=== PATIENT | male | born 1970 | race Caucasian/White ===

== ENCOUNTER 2018-06-29 09:40 | Inpatient (IN) | payer BC, SELFPAY ==
[2018-06-29] VITALS (47 sets, daily range): BP systolic 142–187; BP diastolic 89–114; PULSE 75–123; RESP 15–33; TEMP 37–39.4; O2SAT 91–98
[2018-06-29 10:01] LABS: Bilirubin Small (Negative); Blood Trace-lysed (Negative); Clarity Clear; Glucose Negative (Negative); Ketones 40 mg/dL (Negative); Leukocyte Esterase Negative (Negative); Nitrite Negative (Negative); Specific Gravity 1.025 (1.005-1.025)
[2018-06-29 10:09] LABS: Lactate 1.1 mmol/L (0.6-1.4)
[2018-06-29 10:10] LABS: Absolute Basophil Count 0.02 k/cumm (0.0-0.2); Absolute Lymphocyte Count 1.37 k/cumm (1.2-3.4); Absolute Monocyte Count 1.46 k/cumm (0.11-0.7); Basophils % 0.1; Eosinophils % 0.1; HCT 45.7 % (40.0-50.0); HGB 16.2 g/dL (13.5-17.5); Immature Grans % 0.6; Lymphocytes % 7.9; Mean Corp. HGB Concentration 35.4 g/dL (32.0-36.0); Mean Corpuscular Hemoglobin 30.2 pg (27.0-33.0); Mean Corpuscular Volume 85.1 fL (80-95); Mean Platelet Volume 9.7 fL (8.0-11.0); Monocytes % 8.4; Neutrophils % 82.9; Platelet Count 276 x1000/uL (130-400); RBC 5.37 m/cumm (4.50-6.00); RBC Distribution Width 12.1 % (11.8-14.1); White Blood Cell Count 17.35 k/cumm (4.4-10.8)
[2018-06-29 10:16] LABS: Absolute Eosinophil Count 0.02 k/cumm (0.0-0.7); Absolute Neutrophil Count 14.38 k/cumm (1.2-6.7)
[2018-06-29 10:19] LABS: Bacteria Moderate HPF (Negative); Epithelial Cells Negative HPF (Negative); Other Cells Few Renal (Negative); RBC Negative (0-2)
[2018-06-29 10:20] LABS: Casts 5-10 Hyaline LPF (Negative); Crystals Few Amorphous HPF (Negative); Mucus Moderate (Negative)
[2018-06-29 10:21] LABS: C & S Indicated? No
[2018-06-29 10:26] LABS: C-Reactive Protein 22.83 mg/dL (0.0-0.3)
--- NOTE | 2018-06-29 10:27 | W.ED.GENAD ---
Discharge Plan Disposition Patient Disposition: [facility] INPATIENT Condition: Improving Discharge Details Chief Complaint: Cellulitis Clinical Impression: Cellulitis, Headache, Sepsis Admit Date/Time: 06/29/18 14:32 Admit Provider: Beau Leonardo Attending Provider: Beau Leonardo Primary Care Provider: Margarita Boswell V ED Provider: Glynn Hernandez Discharge Data Discharge Date/Time-TO BE ENTERED AT DEPARTURE: 06/29/18 15:34 Medical Decision Making This is a 47-year-old male with past medical history of diabetes and hypertension who presents with 3 days of frontal pressure, severe headache, and cellulitis over his forehead extending to his ears bilaterally. On arrival here he is tachycardic, and febrile. He does complain of headache with as well as mild neck pain. No nuchal rigidity or neck stiffness. Signs and symptoms are notably concerning for septicemia, however differential also includes dural venous sinus thrombosis, as well as malignant sinusitis. Will start broad-spectrum antibiotics, he has a severe penicillin allergy and so we will start vancomycin and meropenem for the time being. We will start with head CT to evaluate for venous sinus thrombosis, and I feel that the patient would benefit from a lumbar puncture to rule out subsequent meningitis. With no focal neurologic deficits at this time, if the patient's CT scan is otherwise benign, I feel that lumbar puncture would be reasonable CT scan has returned, there is no evidence of acute bleed, tumor, or mass. No evidence of preseptal cellulitis. Laboratory workup demonstrates an elevated white count, notable left shift without bandemia. With the patient's continued severe headache, and other concerning symptoms including the notably elevated ESR and CRP, I do think that lumbar puncture is indicated. Lumbar puncture was performed, and unfortunately the initial tap was bloody, most likely secondary to finding a vessel. A second tap was performed with no evidence of gross bloodiness. Patient tolerated all this very well. Cerebrospinal fluid has returned, glucose is slightly elevated, total protein is also surprisingly elevated. CSF tube demonstrates 34 RBCs and 5 WBCs. Not clinically significant for severe bacterial meningitis, and it does not appear to represent a severe intracranial bleed with the clinical component of the initial bloody tap, especially in conjunction with a CT scan showing no evidence of acute bloody process. Patient was given Tylenol and rehydrated with normal saline, is actually feeling much better now after this intervention and antibiotics. With the patient's evidence of sepsis with his tachycardia, fever, notable scalp cellulitis, I do feel that admission, continued IV antibiotics, is certainly reasonable and indicated. I contacted our hospitalist Dr Leonardo, he agrees with the assessment and plan. I have extensively reviewed the treatment plan with the patient. I have addressed all patient concerns at this time. I have also discussed the plan with the admitting physician and they agree with the current assessment and plan and have agreed to assume responsibility for the patient. All parties demonstrate verbal understanding and agreement with our assessment and plan at this time. EKG 10: 09 Rate 111, intervals normal, sinus tachycardia, no significant ST elevations or depressions, inverted T wave present in V1. No Q waves Procedure: Lumbar Puncture Indication: Altered Mental Status/Headache A time-out was completed verifying correct patient, procedure, site, positioning, and special equipment if applicable. The patient was placed in the LEFT lateral decubitus position in a semi- position with help from the nursing staff. The area was cleansed and draped in usual sterile fashion. 1% lidocaine was used anesthetize the surrounding skin area. A 20-gauge 3.5-inch spinal needle was placed in the L4-L5 interspace. Notable bloody tap was encountered, 2 tubes were filled with relatively clear fluid with minimal red tinged. Because of the concern for result obfuscation from the blood a second tap was performed with a 25-gauge 3.5 spinal needle was then placed in the L4-L5 interspace. No bloody tap. Patient tolerated procedure well. Total of 4 mL's of cerebrospinal fluid was elected. Tubes 1 and 2 were from the initial tap, and tubes 3 and 4 were from the second tap. Estimated Blood Loss: 1ml The patient tolerated the procedure well and there were no complications. CRANIAL CT: The study was carried out with an intravenous injection of 100 cc of Omnipaque 350. There is no evidence of an intra/extra-axial hemorrhage, mass or fluid collection. The velazquez-white matter differentiation is well maintained. The ventricles are normal. No vascular abnormality is identified. There is no evidence of a skull fracture. Mild mucoperiosteal thickening is noted in the left maxillary antrum and in the ethmoid and left frontal sinus. There is no evidence of a mastoid effusion. SUMMARY: No acute intracranial abnormality is seen. There are mild inflammatory changes involving the left maxillary, ethmoid and left frontal sinus. FACIAL BONE CT: HPI General Date/Time Provider Initiated Documentation: 06/29/18 10:04. HPI Narrative: This is a 47-year-old male with past medical history of hypertension diabetes who presents today for evaluation of facial swelling, and headache. Patient states that for the last 3 days he has had frontal cellulitis, notable swelling and pressure over his frontal maxillary sinuses. He did have an upper respiratory infection about a week and a half prior, but he felt like this is resolving. He describes the pain is severe. When it started 2-3 days ago he was driving back from [place] was noticing visual hallucinations, the colors of the cars in front of him with change, which she felt was very atypical. Today he was noted to have a fever and elevated heart rate when he went to his primary care provider's office for assessment. Patient denies any history of trauma. He does admit to headache as well as some mild neck pain. He denies any auditory changes. He denies any vomiting, diarrhea, numbness, tingling, focal weakness, or other abnormalities. He denies any other visual hallucinations aside for what was mentioned. He is not on any blood thinners. No other complaints at this time. He denies any IV or illicit drug use, or pertinent family history or recent surgical history. Related Data Home Medications Medication Instructions Recorded Confirmed amlodipine 2.5 - 5 mg PO DAILY 06/29/18 06/29/18 chlorthalidone 25 mg PO DAILY 06/29/18 06/29/18 cyanocobalamin (vitamin B-12) 1,000 mcg PO DAILY 06/29/18 06/29/18 [Vitamin B-12] glipizide 20 mg PO DAILY 06/29/18 06/29/18 losartan 100 mg PO DAILY 06/29/18 06/29/18 metformin [Glucophage XR] 750 mg PO DAILY 06/29/18 06/29/18 Allergies Allergy/AdvReac Type Severity Reaction Status Date / Time Penicillins Allergy Unverified 06/29/18 10:18 General Stated Complaint: Cellulitis LAURIE: 3 Review of Systems Review of Systems All systems reviewed & are unremarkable except as noted in HPI and below [facility] Medical History Hypertension (Chronic) Diabetes mellitus (Chronic) Social History Smoking/Tobacco Use Status: Never Alcohol Intake: current Alcohol Intake frequency: holidays/special occasions only Details: rare etoh Drug use: Never current occupation: [employer], 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 3.ENT: Atraumatic external nose and ears. Moist MM. Neck: Symmetric, trachea midline, No thyromegaly. Notable swelling over the forehead, extending down towards the ears bilaterally. It is warm, red, and mildly indurated. Notable tenderness over the frontal maxillary sinuses. No proptosis. No significant pain with movement of the eyes. No evidence of otitis media or externa. Patient does demonstrate subjective tenderness in his neck, however no neck stiffness or nuchal rigidity. Negative Kernig's and Brudzinski's. 4.CVS: +S1/S2, No murmurs or gallops. Peripheral pulses 2+ and equal in all extremities. Brisk capillary refill in all extremities. 5.RESP: Unlabored respiratory effort. Clear to auscultation bilaterally. No wheezes rales or rhonchi 6.GI: Soft, Nontender/Nondistended, No hepatosplenomegaly. No guarding or rebound. 7.MSK: Normocephalic/Atraumatic, Extremities w/o deformity or ttp No cyanosis or clubbing, Normal movement of all extremities 8.Skin: Warm, Dry. No rashes or lesions. 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 Sensation grossly intact, no focal neurologic deficits. All 6 cardinal planes of vision are fully intact. No evidence of rotatory or vertical nystagmus. The patient demonstrated a normal [id number], good dexterity. There was no evidence of dysdiadochokinesia. Patient was able to ambulate without difficulty. There was no wide-based gait. Romberg, and [id number]-hv-[id number] are both normal on testing. Sensation was intact bilaterally as well as muscle strength bilaterally for all extremities. Patient was able to verbalize butter cup with no slurring, or miss pronunciation. 10.Psych: (AAO) x3. Appropriate mood and affect Course Vital Signs Temperature 39.3 C H 06/29/18 09:48 Pulse 123 H 06/29/18 09:48 Respiratory Rate 16 06/29/18 09:48 Blood Pressure 187/114 H 06/29/18 09:48 Pulse Oximetry 98 06/29/18 09:48 Temperature 39.3 C H 06/29/18 09:48 Temperature Source Tympanic 06/29/18 09:48 Pulse 123 H 06/29/18 09:48 Respiratory Rate 16 06/29/18 09:48 Respiratory Effort Non-Labored 06/29/18 09:55 Blood Pressure 187/114 H 06/29/18 09:48 Blood Pressure Position Sitting 06/29/18 09:48 Pulse Oximetry 98 06/29/18 09:48 Oxygen Delivery Method Room Air 06/29/18 09:48 Oxygen Flow Rate 0 06/29/18 09:48 Pain Level 10 06/29/18 09:48 Lab/Test Results Lab/Test Results: 06/29/18 09:57 Blood Blood Culture - Pending 06/29/18 10:05 Blood Blood Culture - Pending Laboratory Tests Range/Units 06/29/18 06/29/18 06/29/18 09:53 09:57 09:57 WBC (4.4-10.8) k/cumm 17.35 H RBC (4.50-6.00) m/cumm 5.37 Hgb (13.5-17.5) g/dL 16.2 Hct (40.0-50.0) % 45.7 MCV (80-95) fL 85.1 MCH (27.0-33.0) pg 30.2 MCHC (32.0-36.0) g/dL 35.4 RDW (11.8-14.1) % 12.1 Plt Count (130-400) x1000/uL 276 MPV (8.0-11.0) fL 9.7 Immature Gran % 0.6 Neutrophils % 82.9 Lymphocytes % 7.9 Monocytes % 8.4 Eosinophils % 0.1 Basophils % 0.1 Absolute Neutrophils (1.2-6.7) k/cumm 14.38 H Absolute Lymphocytes (1.2-3.4) k/cumm 1.37 Absolute Monocytes (0.11-0.7) k/cumm 1.46 H Absolute Eosinophils (0.0-0.7) k/cumm 0.02 Absolute Basophils (0.0-0.2) k/cumm 0.02 Lactate (0.6-1.4) mmol/L 1.1 C-Reactive Protein (0.0-0.3) mg/dL Urine Color (Yellow) Lala Urine Clarity Clear Urine pH (5-8) 6.0 Ur Specific Tolstoy (1.005-1.025) 1.025 Urine Protein (Negative) mg/dL >=300 H Urine Ketones (Negative) mg/dL 40 H Urine Blood (Negative) Trace-lysed H Urine Nitrite (Negative) Negative Urine Bilirubin (Negative) Small H Urine Urobilinogen (Up TO 0.2) EU/dL 2.0 H Ur Leukocyte Esterase (Negative) Negative Urine RBC (0-2) Negative Urine WBC (0-5) HPF 3-5 Ur Epithelial Cells (Negative) HPF Negative Urine Crystals (Negative) HPF Few amorphous Urine Bacteria (Negative) HPF Moderate Urine Casts (Negative) LPF 5-10 hyaline Urine Mucus (Negative) Moderate Urine Other (Negative) Few renal Ur Culture Indicated? No Urine Glucose (Negative) mg/dL Negative Range/Units 06/29/18 09:57 WBC (4.4-10.8) k/cumm RBC (4.50-6.00) m/cumm Hgb (13.5-17.5) g/dL Hct (40.0-50.0) % MCV (80-95) fL MCH (27.0-33.0) pg MCHC (32.0-36.0) g/dL RDW (11.8-14.1) % Plt Count (130-400) x1000/uL MPV (8.0-11.0) fL Immature Gran % Neutrophils % Lymphocytes % Monocytes % Eosinophils % Basophils % Absolute Neutrophils (1.2-6.7) k/cumm Absolute Lymphocytes (1.2-3.4) k/cumm Absolute Monocytes (0.11-0.7) k/cumm Absolute Eosinophils (0.0-0.7) k/cumm Absolute Basophils (0.0-0.2) k/cumm Lactate (0.6-1.4) mmol/L C-Reactive Protein (0.0-0.3) mg/dL 22.83 H Urine Color (Yellow) Urine Clarity Urine pH (5-8) Ur Specific Tolstoy (1.005-1.025) Urine Protein (Negative) mg/dL Urine Ketones (Negative) mg/dL Urine Blood (Negative) Urine Nitrite (Negative) Urine Bilirubin (Negative) Urine Urobilinogen (Up TO 0.2) EU/dL Ur Leukocyte Esterase (Negative) Urine RBC (0-2) Urine WBC (0-5) HPF Ur Epithelial Cells (Negative) HPF Urine Crystals (Negative) HPF Urine Bacteria (Negative) HPF Urine Casts (Negative) LPF Urine Mucus (Negative) Urine Other (Negative) Ur Culture Indicated? Urine Glucose (Negative) mg/dL
[2018-06-29 10:32] LABS: ALT 69 U/L (12-78); AST 35 U/L (15-37); Albumin 3.4 g/dL (3.4-5.0); Alkaline Phosphatase 65 U/L (46-116); Anion Gap 12.7 mmol/L (3-11); BUN 12 mg/dL (7-18); Bilirubin, Total 1.5 mg/dL (0.2-1.0); CO2 29.3 mmol/L (21.0-32.0); CREATININE 1.02 mg/dL (0.70-1.30); Calcium 9.5 mg/dL (8.5-10.1); Chloride 87 mmol/L (98-107); Glucose 170 mg/dL (70-100); Sodium 129 mmol/L (136-145); Total Protein 9.3 g/dL (6.4-8.2); Troponin I < 0.02 ng/mL (0.00-0.06)
--- NOTE | 2018-06-29 10:33 | ED.GENADUL_ITS ---
Discharge Plan Disposition Patient Disposition: [facility] INPATIENT Condition: Improving Discharge Details Chief Complaint: Cellulitis Clinical Impression: Cellulitis, Headache, Sepsis Admit Date/Time: 06/29/18 14:32 Admit Provider: Beau Leonardo Attending Provider: Beau Leonardo Primary Care Provider: Margarita Boswell V ED Provider: Glynn Hernandez Discharge Data Discharge Date/Time-TO BE ENTERED AT DEPARTURE: 06/29/18 15:34 Medical Decision Making This is a 47-year-old male with past medical history of diabetes and hypertension who presents with 3 days of frontal pressure, severe headache, and cellulitis over his forehead extending to his ears bilaterally. On arrival here he is tachycardic, and febrile. He does complain of headache with as well as mild neck pain. No nuchal rigidity or neck stiffness. Signs and symptoms are notably concerning for septicemia, however differential also includes dural venous sinus thrombosis, as well as malignant sinusitis. Will start broad- spectrum antibiotics, he has a severe penicillin allergy and so we will start vancomycin and meropenem for the time being. We will start with head CT to evaluate for venous sinus thrombosis, and I feel that the patient would benefit from a lumbar puncture to rule out subsequent meningitis. With no focal neurologic deficits at this time, if the patient's CT scan is otherwise benign, I feel that lumbar puncture would be reasonable CT scan has returned, there is no evidence of acute bleed, tumor, or mass. No evidence of preseptal cellulitis. Laboratory workup demonstrates an elevated white count, notable left shift without bandemia. With the patient's continued severe headache, and other concerning symptoms including the notably elevated ESR and CRP, I do think that lumbar puncture is indicated. Lumbar puncture was performed, and unfortunately the initial tap was bloody, most likely secondary to finding a vessel. A second tap was performed with no evidence of gross bloodiness. Patient tolerated all this very well. Cerebrospinal fluid has returned, glucose is slightly elevated, total protein is also surprisingly elevated. CSF tube demonstrates 34 RBCs and 5 WBCs. Not clinically significant for severe bacterial meningitis, and it does not appear to represent a severe intracranial bleed with the clinical component of the initial bloody tap, especially in conjunction with a CT scan showing no evidence of acute bloody process. Patient was given Tylenol and rehydrated with normal saline, is actually feeling much better now after this intervention and antibiotics. With the patient's evidence of sepsis with his tachycardia, fever, notable scalp cellulitis, I do feel that admission, continued IV antibiotics, is certainly reasonable and indicated. I contacted our hospitalist Dr Leonardo, he agrees with the assessment and plan. I have extensively reviewed the treatment plan with the patient. I have addressed all patient concerns at this time. I have also discussed the plan with the admitting physician and they agree with the current assessment and plan and have agreed to assume responsibility for the patient. All parties demonstrate verbal understanding and agreement with our assessment and plan at this time. EKG 10: 09 Rate 111, intervals normal, sinus tachycardia, no significant ST elevations or depressions, inverted T wave present in V1. No Q waves Procedure: Lumbar Puncture Indication: Altered Mental Status/Headache A time-out was completed verifying correct patient, procedure, site, positioning, and special equipment if applicable. The patient was placed in the LEFT lateral decubitus position in a semi- position with help from the nursing staff. The area was cleansed and draped in usual sterile fashion. 1% lidocaine was used anesthetize the surrounding skin area. A 20-gauge 3.5-inch spinal needle was placed in the L4-L5 interspace. Notable bloody tap was encountered, 2 tubes were filled with relatively clear fluid with minimal red tinged. Because of the concern for result obfuscation from the blood a second tap was performed with a 25-gauge 3.5 spinal needle was then placed in the L4- L5 interspace. No bloody tap. Patient tolerated procedure well. Total of 4 mL's of cerebrospinal fluid was elected. Tubes 1 and 2 were from the initial tap, and tubes 3 and 4 were from the second tap. Estimated Blood Loss: 1ml The patient tolerated the procedure well and there were no complications. CRANIAL CT: The study was carried out with an intravenous injection of 100 cc of Omnipaque 350. There is no evidence of an intra/extra-axial hemorrhage, mass or fluid collection. The velazquez-white matter differentiation is well maintained. The ventricles are normal. No vascular abnormality is identified. There is no evidence of a skull fracture. Mild mucoperiosteal thickening is noted in the left maxillary antrum and in the ethmoid and left frontal sinus. There is no evidence of a mastoid effusion. SUMMARY: No acute intracranial abnormality is seen. There are mild inflammatory changes involving the left maxillary, ethmoid and left frontal sinus. FACIAL BONE CT: HPI General Date/Time Provider Initiated Documentation: 06/29/18 10:04 . HPI Narrative: This is a 47-year-old male with past medical history of hypertension diabetes who presents today for evaluation of facial swelling, and headache. Patient states that for the last 3 days he has had frontal cellulitis, notable swelling and pressure over his frontal maxillary sinuses. He did have an upper respiratory infection about a week and a half prior, but he felt like this is resolving. He describes the pain is severe. When it started 2-3 days ago he was driving back from [place] was noticing visual hallucinations, the colors of the cars in front of him with change, which she felt was very atypical. Today he was noted to have a fever and elevated heart rate when he went to his primary care provider's office for assessment. Patient denies any history of trauma. He does admit to headache as well as some mild neck pain. He denies any karsten tory changes. He denies any vomiting, diarrhea, numbness, tingling, focal weakness, or other abnormalities. He denies any other visual hallucinations aside for what was mentioned. He is not on any blood thinners. No other complaints at this time. He denies any IV or illicit drug use, or pertinent family history or recent surgical history. Related Data Home Medications Medication Instructions Recorded Confirmed amlodipine 2.5 - 5 mg PO DAILY 06/29/18 06/29/18 chlorthalidone 25 mg PO DAILY 06/29/18 06/29/18 cyanocobalamin (vitamin B-12) 1,000 mcg PO DAILY 06/29/18 06/29/18 [Vitamin B-12] glipizide 20 mg PO DAILY 06/29/18 06/29/18 losartan 100 mg PO DAILY 06/29/18 06/29/18 metformin [Glucophage XR] 750 mg PO DAILY 06/29/18 06/29/18 Allergies Allergy/AdvReac Type Severity Reaction Status Date / Time Penicillins Allergy Unverified 06/29/18 10:18 General Stated Complaint: Cellulitis LAURIE: 3 Review of Systems Review of Systems All systems reviewed & are unremarkable except as noted in HPI and below [facility] Medical History Hypertension (Chronic) Diabetes mellitus (Chronic) Social History Smoking/Tobacco Use Status: Never Alcohol Intake: current Alcohol Intake frequency: holidays/special occasions only Details: rare etoh Drug use: Never 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 3.ENT: Atraumatic external nose and ears. Moist MM. Neck: Symmetric, trachea m idline, No thyromegaly. Notable swelling over the forehead, extending down towards the ears bilaterally. It is warm, red, and mildly indurated. Notable tenderness over the frontal maxillary sinuses. No proptosis. No significant pain with movement of the eyes. No evidence of otitis media or externa. Patient does demonstrate subjective tenderness in his neck, however no neck stiffness or nuchal rigidity. Negative Kernig's and Brudzinski's. 4.CVS: +S1/S2, No murmurs or gallops. Peripheral pulses 2+ and equal in all extremities. Brisk capillary refill in all extremities. 5.RESP: Unlabored respiratory effort. Clear to auscultation bilaterally. No wheezes rales or rhonchi 6.GI: Soft, Nontender/Nondistended, No hepatosplenomegaly. No guarding or rebound. 7.MSK: Normocephalic/Atraumatic, Extremities w/o deformity or ttp No cyanosis or clubbing, Normal movement of all extremities 8.Skin: Warm, Dry. No rashes or lesions. 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 Sensation grossly intact, no focal neurologic deficits. All 6 cardinal planes of vision are fully intact. No evidence of rotatory or vertical nystagmus. The patient demonstrated a normal [id number], good dexterity. There was no evidence of dysdiadochokinesia. Patient was able to ambulate without difficulty. There was no wide-based gait. Romberg, and [id number] are both normal on testing. Sensation was intact bilaterally as well as muscle strength bilaterally for all extremities. Patient was able to verbalize butter cup with no slurring, or miss pronunciation. 10.Psych: (AAO) x3. Appropriate mood and affect Course Vital Signs Temperature 39.3 C H 06/29/18 09:48 Pulse 123 H 06/29/18 09:48 Respiratory Rate 16 06/29/18 09:48 Blood Pressure 187/114 H 06/29/18 09:48 Pulse Oximetry 98 06/29/18 09:48 Temperature 39.3 C H 06/29/18 09:48 Temperature Source Tympanic 06/29/18 09:48 Pulse 123 H 06/29/18 09:48 Respiratory Rate 16 06/29/18 09:48 Respiratory Effort Non-Labored 06/29/18 09:55 Blood Pressure 187/114 H 06/29/18 09:48 Blood Pressure Position Sitting 06/29/18 09:48 Pulse Oximetry 98 06/29/18 09:48 Oxygen Delivery Method Room Air 06/29/18 09:48 Oxygen Flow Rate 0 06/29/18 09:48 Pain Level 10 06/29/18 09:48 Lab/Test Results Lab/Test Results: 06/29/18 09:57 Blood Blood Culture - Pending 06/29/18 10:05 Blood Blood Culture - Pending Laboratory Tests Range/Units 06/29/18 06/29/18 06/29/18 09:53 09:57 09:57 WBC (4.4-10.8) k/cumm 17.35 H RBC (4.50-6.00) m/cumm 5.37 Hgb (13.5-17.5) g/dL 16.2 Hct (40.0-50.0) % 45.7 MCV (80-95) fL 85.1 MCH (27.0-33.0) pg 30.2 MCHC (32.0-36.0) g/dL 35.4 RDW (11.8-14.1) % 12.1 Plt Count (130-400) x1000/uL 276 MPV (8.0-11.0) fL 9.7 Immature Gran % 0.6 Neutrophils % 82.9 Lymphocytes % 7.9 Monocytes % 8.4 Eosinophils % 0.1 Basophils % 0.1 Absolute Neutrophils (1.2-6.7) k/cumm 14.38 H Absolute Lymphocytes (1.2-3.4) k/cumm 1.37 Absolute Monocytes (0.11-0.7) k/cumm 1.46 H Absolute Eosinophils (0.0-0.7) k/cumm 0.02 Absolute Basophils (0.0-0.2) k/cumm 0.02 Lactate (0.6-1.4) mmol/L 1.1 C-Reactive Protein (0.0-0.3) mg/dL Urine Color (Yellow) Lala Urine Clarity Clear Urine pH (5-8) 6.0 Ur Specific [place] (1.005-1.025) 1.025 Urine Protein (Negative) mg/dL >=300 H Urine Ketones (Negative) mg/dL 40 H Urine Blood (Negative) Trace-lysed H Urine Nitrite (Negative) Negative Urine Bilirubin (Negative) Small H Urine Urobilinogen (Up TO 0.2) EU/dL 2.0 H Ur Leukocyte Esterase (Negative) Negative Urine RBC (0-2) Negative Urine WBC (0-5) HPF 3-5 Ur Epithelial Cells (Negative) HPF Negative Urine Crystals (Negative) HPF Few amorphous Urine Bacteria (Negative) HPF Moderate Urine Casts (Negative) LPF 5-10 hyaline Urine Mucus (Negative) Moderate Urine Other (Negative) Few renal Ur Culture Indicated? No Urine Glucose (Negative) mg/dL Negative Range/Units 06/29/18 09:57 WBC (4.4-10.8) k/cumm RBC (4.50-6.00) m/cumm Hgb (13.5-17.5) g/dL Hct (40.0-50.0) % MCV (80-95) fL MCH (27.0-33.0) pg MCHC (32.0-36.0) g/dL RDW (11.8-14.1) % Plt Count (130-400) x1000/uL MPV (8.0-11.0) fL Immature Gran % Neutrophils % Lymphocytes % Monocytes % Eosinophils % Basophils % Absolute Neutrophils (1.2-6.7) k/cumm Absolute Lymphocytes (1.2-3.4) k/cumm Absolute Monocytes (0.11-0.7) k/cumm Absolute Eosinophils (0.0-0.7) k/cumm Absolute Basophils (0.0-0.2) k/cumm Lactate (0.6-1.4) mmol/L C-Reactive Protein (0.0-0.3) mg/dL 22.83 H Urine Color (Yellow) Urine Clarity Urine pH (5-8) Ur Specific [place] (1.005-1.025) Urine Protein (Negative) mg/dL Urine Ketones (Negative) mg/dL Urine Blood (Negative) Urine Nitrite (Negative) Urine Bilirubin (Negative) Urine Urobilinogen (Up TO 0.2) EU/dL Ur Leukocyte Esterase (Negative) Urine RBC (0-2) Urine WBC (0-5) HPF Ur Epithelial Cells (Negative) HPF Urine Crystals (Negative) HPF Urine Bacteria (Negative) HPF Urine Casts (Negative) LPF Urine Mucus (Negative) Urine Other (Negative) Ur Culture Indicated? Urine Glucose (Negative) mg/dL
[2018-06-29 11:11] LABS: ESR 92 MM/HR (0-15)
--- NOTE | 2018-06-29 11:25 | DI.CT_ITS ---
SYMPTOMS/DIAGNOSIS: FACIAL CELLULITIS, FRONTAL PRESSURE, ? DURAL VENOUS SINUS THROMBOSIS CRANIAL CT: The study was carried out with an intravenous injection of 100 cc of Omnipaque 350. There is no evidence of an intra/extra-axial hemorrhage, mass or fluid collection. The velazquez-white matter differentiation is well maintained. The ventricles are normal. No vascular abnormality is identified. There is no evidence of a skull fracture. Mild mucoperiosteal thickening is noted in the left maxillary antrum and in the ethmoid and left frontal sinus. There is no evidence of a mastoid effusion. SUMMARY: No acute intracranial abnormality is seen. There are mild inflammatory changes involving the left maxillary, ethmoid and left frontal sinus. FACIAL BONE CT: The study was carried out according to the usual protocol with intravenous administration of 100 cc of Omnipaque 350. No bony abnormality is seen. There is mucoperiosteal thickening involving the floor of the left maxillary antrum, and left ethmoid and left frontal air cell. The intraorbital contents appear intact. Increased density is noted in the subcutaneous soft tissues over the face consistent with the clinical finding of facial cellulitis. There is no discrete soft tissue mass or fluid collection.
[2018-06-29] MEDS: Omnipaque 350 MG/ML 100 ML BTL IJ (11:35)
[2018-06-29] MEDS: Normal Saline 1,000 ML 1000 ML IV (12:00)
[2018-06-29] MEDS: POTASSIUM CHLORIDE 20 MEQ/100 ML BAG 50 MEQ IVPB (12:00)
[2018-06-29] MEDS: Potassium Chloride 20 MEQ TABCR 40 MEQ PO (12:10)
[2018-06-29] MEDS: Acetaminophen 500 MG TAB (12:13)
[2018-06-29] MEDS: MORPHine 10 MG/ML VIAL 4 MG IVP (13:03)
[2018-06-29 13:18] LABS: Glucose (CSF) 91 mg/dL (40-70); Total Protein (CSF) 94 mg/dL (15-45)
[2018-06-29 13:57] LABS: Clarity Clear; RBC 34 /mm3 (0-5); Tube # 2; WBC 5 /mm3 (0-5); Xanthochromia Absent
[2018-06-29 13:59] LABS: RBC Tube#1 CSF 167 /mm3 (0-5)
--- NOTE | 2018-06-29 16:17 | W.PM.HP.N ---
Date of service: 06/29/18 Time of Service: 16:17 Assessment and Plan (1) Facial cellulitis: Current visit: Yes Status: Acute Possibly related to recent URI with sinus congestion, also has healing wounds that could possibly serve as portals for infection. He has leukocytosis to 17.35, he was febrile on presentation, lactate normal. LP findings discussed with Neurology by Dr. Leonardo, LP shows clear fluid, 5 WBCs, elevated protein- likely related to inflammation and DM, glucose elevated on LP related to DM, neurology not concerned about these findings. Facial and head CT with findings consistent with facial cellulitis, no soft tissue mass or fluid collection. No drainage to culture. Blood cultures pending. Continue IV antibiotics started in the ED including Vanco and Meropenem. Continue IV fluids overnight. APAP for fevers and headache. Repeat CBC in the morning. (2) Diabetes mellitus: Current visit: Yes Status: Chronic Hold metformin. Continue glipizide and follow blood glucose, aspart per sliding scale. Adjust insulin as needed. Hgb A1c in the morning. Carbohydrate counting diet. (3) Dehydration: Current visit: Yes Status: Acute Appears dry by labs, with hyponatremia and low choloride. IV NS overnight. Reassess chemistries in the morning. (4) Hypertension: Current visit: Yes Status: Chronic Hold losartan and chlorthalidone. Follow blood pressures. Continue home dose of amlodipine. Resume home antihypertensive regimen as indicated. (5) Hypokalemia: Current visit: Yes Status: Acute Received potassium supplementation. Continue to follow. (6) DVT prophylaxis: Current visit: Yes Status: Acute Subcutaneous lovenox. (7) Discharge planning issues: Current visit: Yes Status: Acute He is a FULL CODE. This case was discussed with Dr. Leonardo who is in agreement. History of Present Illness Chief Complaint: fever, headache, facial cellulitis Narrative: Ari Bernal is a very pleasant 47-year-old male with a past medical history significant for hypertension diabetes who presented to his primary care office today and was directed to the emergency department. He reports a recent upper respiratory infection with a cough, congestion and sinus pressure that was resolving about a week ago. As the upper respiratory infection was improving, he began to notice that his neck appeared red and swollen and he felt feverish. Over the following days, the redness spread up over his ears and over his forehead. At the time of presentation to the emergency department today, he was febrile to 39.4, tachycardic, hypertensive, and reported a headache as well as mild neck pain that was improving. His labs were notable for hyponatremia with a sodium of 129, potassium low at 3.0, chloride low at 87, elevated anion gap at 12.7. His CRP was 22.83, sed rate was 92, he had leukocytosis with white blood cell count of 17.35. His lactate was normal at 1.1. He had a CT head and facial bones which showed mild inflammatory changes involving the left maxillary, ethmoid and left frontal sinus, findings consistent with facial cellulitis, no discrete soft tissue mass or fluid collection. His fever improved with tylenol. He was started on Vanco and Meropenem for facial cellulitis and admitted to the med/surg floor for IV antibiotics. By the time he was admitted to the med/surg floor, he reports feeling markedly better, he continues to have head pressure, although it improved with tylenol. He denies eye pain, vision changes including diplopia and blurred vision. He recalls going to a salon for a hair cut and has two healing wounds that may have been from that encounter, one lesion posterior to each ear. He also reports a healing wound on his left chest that has surrounding erythema. Over the last week he has been going through his father's belongings in a barn and is concerned that he may have had an exposure to something at that time. He no longer has sinus pain or congestion, his cough has resolved, no wheezing, chest pain/pressure, palpitations. He was nauseated and had a poor appetite prior to coming into the hospital, however, his nausea has resolved and he feels hungry now. He denies dysuria, hematuria, and diarrhea. 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 [employer] Do you feel safe at home: Yes Do you feel safe in your relationship?: Yes Meds Home Medications Medication Instructions Recorded Confirmed Type amlodipine 2.5 - 5 mg PO DAILY 06/29/18 06/29/18 History chlorthalidone 25 mg PO DAILY 06/29/18 06/29/18 History cyanocobalamin (vitamin B-12) 1,000 mcg PO DAILY 06/29/18 06/29/18 History [Vitamin B-12] glipizide 20 mg PO DAILY 06/29/18 06/29/18 History losartan 100 mg PO DAILY 06/29/18 06/29/18 History metformin [Glucophage XR] 750 mg PO DAILY 06/29/18 06/29/18 History Allergies Allergy/AdvReac Type Severity Reaction Status Date / Time Penicillins Allergy Unverified 06/29/18 10:18 Exam Narrative Exam Narrative: General: sitting up in bed, awake and alert, in no acute distress. HEENT: pupils equal and round and reactive to light, EOMI, no pain with eye movement. mucous membranes moist, oropharynx skin: blanching erythema and marked edema of forehead, along sides of face (sparing nose, mouth and chin), including bilateral ears, around neck and down into chest. Skin lesion to left chest, healing wound, no drainage, surrounded by erythema. Healing wound noted posterior to each ear, no active drainage. Neck: supple, no lymphadenopathy. Cardiovascular: heart has regular rate and rhythm, no murmur. Respiratory: respirations even and unlabored, lung sound clear to auscultation throughout. Extremities: no clubbing, cyanosis or edema. Results Labs : 06/29/18 09:57 06/29/18 09:57 Laboratory Results - last 24 hr 06/29/18 06/29/18 06/29/18 09:53 09:57 09:57 WBC RBC Hgb Hct MCV MCH MCHC RDW Plt Count MPV Immature Gran % Neutrophils % Lymphocytes % Monocytes % Eosinophils % Basophils % Absolute Neutrophils Absolute Lymphocytes Absolute Monocytes Absolute Eosinophils Absolute Basophils Xanthochromia ESR Sodium 129 L Potassium 3.0 L Chloride 87 L Carbon Dioxide 29.3 Anion Gap 12.7 H BUN 12 Creatinine 1.02 Estimated GFR/1.73 m2 >= 60.00 Glucose 170 H Lactate 1.1 Calcium 9.5 Magnesium 2.0 Total Bilirubin 1.5 H AST 35 ALT 69 Alkaline Phosphatase 65 Troponin I < 0.02 C-Reactive Protein Total Protein 9.3 H Albumin 3.4 Urine Color Lala Urine Clarity Clear Urine pH 6.0 Ur Specific [place] 1.025 Urine Protein >=300 H Urine Ketones 40 H Urine Blood Trace-lysed H Urine Nitrite Negative Urine Bilirubin Small H Urine Urobilinogen 2.0 H Ur Leukocyte Esterase Negative Urine RBC Negative Urine WBC 3-5 Ur Epithelial Cells Negative Urine Crystals Few amorphous Urine Bacteria Moderate Urine Casts 5-10 hyaline Urine Mucus Moderate Urine Other Few renal Ur Culture Indicated? No Urine Glucose Negative CSF Tube Number CSF Color CSF Clarity CSF WBC CSF RBC CSF RBC (1) CSF Diff Comment CSF Glucose CSF Total Protein 06/29/18 06/29/18 06/29/18 09:57 09:57 09:57 WBC 17.35 H RBC 5.37 Hgb 16.2 Hct 45.7 MCV 85.1 MCH 30.2 MCHC 35.4 RDW 12.1 Plt Count 276 MPV 9.7 Immature Gran % 0.6 Neutrophils % 82.9 Lymphocytes % 7.9 Monocytes % 8.4 Eosinophils % 0.1 Basophils % 0.1 Absolute Neutrophils 14.38 H Absolute Lymphocytes 1.37 Absolute Monocytes 1.46 H Absolute Eosinophils 0.02 Absolute Basophils 0.02 Xanthochromia ESR 92 H Sodium Potassium Chloride Carbon Dioxide Anion Gap BUN Creatinine Estimated GFR/1.73 m2 Glucose Lactate Calcium Magnesium Total Bilirubin AST ALT Alkaline Phosphatase Troponin I C-Reactive Protein 22.83 H Total Protein Albumin Urine Color Urine Clarity Urine pH Ur Specific [place] Urine Protein Urine Ketones Urine Blood Urine Nitrite Urine Bilirubin Urine Urobilinogen Ur Leukocyte Esterase Urine RBC Urine WBC Ur Epithelial Cells Urine Crystals Urine Bacteria Urine Casts Urine Mucus Urine Other Ur Culture Indicated? Urine Glucose CSF Tube Number CSF Color CSF Clarity CSF WBC CSF RBC CSF RBC (1) CSF Diff Comment CSF Glucose CSF Total Protein 06/29/18 06/29/18 12:20 12:20 WBC RBC Hgb Hct MCV MCH MCHC RDW Plt Count MPV Immature Gran % Neutrophils % Lymphocytes % Monocytes % Eosinophils % Basophils % Absolute Neutrophils Absolute Lymphocytes Absolute Monocytes Absolute Eosinophils Absolute Basophils Xanthochromia Absent ESR Sodium Potassium Chloride Carbon Dioxide Anion Gap BUN Creatinine Estimated GFR/1.73 m2 Glucose Lactate Calcium Magnesium Total Bilirubin AST ALT Alkaline Phosphatase Troponin I C-Reactive Protein Total Protein Albumin Urine Color Urine Clarity Urine pH Ur Specific [place] Urine Protein Urine Ketones Urine Blood Urine Nitrite Urine Bilirubin Urine Urobilinogen Ur Leukocyte Esterase Urine RBC Urine WBC Ur Epithelial Cells Urine Crystals Urine Bacteria Urine Casts Urine Mucus Urine Other Ur Culture Indicated? Urine Glucose CSF Tube Number 2 CSF Color Colorless CSF Clarity Clear CSF WBC 5 CSF RBC 34 H CSF RBC (1) 167 H CSF Diff Comment CSF Glucose 91 H CSF Total Protein 94 H Last Vital Signs Temp 37 C 06/29/18 15:28 Pulse 93 H 06/29/18 15:28 Resp 20 06/29/18 15:28 BP 148/102 H 06/29/18 15:28 Pulse Ox 97 06/29/18 15:28
[2018-06-29] MEDS: Normal Saline 1,000 ML 150 ML IV ×2 (16:21→23:50)
[2018-06-29] MEDS: Enoxaparin 40 MG/0.4 ML SYR SC (16:21)
[2018-06-29] MEDS: Insulin Aspart 300 UNITS/3 ML PEN SC (17:17)
[2018-06-29] MEDS: Ketorolac 30 MG/ML VIAL IVP (20:12)
[2018-06-29] MEDS: Acetaminophen 500 MG TAB 1000 MG PO (21:02)
[2018-06-30] VITALS (7 sets, daily range): BP systolic 152–168; BP diastolic 89–115; PULSE 72–77; RESP 16–18; TEMP 37.1–38; O2SAT 94–97
[2018-06-30 07:34] LABS: Abs Immature Grans 0.09 k/cumm (0.0-0.09); Absolute Basophil Count 0.01 k/cumm (0.0-0.2); Absolute Eosinophil Count 0.07 k/cumm (0.0-0.7); Absolute Lymphocyte Count 1.83 k/cumm (1.2-3.4); Absolute Monocyte Count 1.32 k/cumm (0.11-0.7); Basophils % 0.1; Eosinophils % 0.5; HGB 13.1 g/dL (13.5-17.5); Immature Grans % 0.7; Lymphocytes % 13.7; Mean Corp. HGB Concentration 35.4 g/dL (32.0-36.0); Mean Corpuscular Hemoglobin 30.7 pg (27.0-33.0); Mean Corpuscular Volume 86.7 fL (80-95); Monocytes % 9.9; Neutrophils % 75.1; Platelet Count 253 x1000/uL (130-400); RBC 4.27 m/cumm (4.50-6.00); White Blood Cell Count 13.38 k/cumm (4.4-10.8)
[2018-06-30 07:35] LABS: Absolute Neutrophil Count 10.05 k/cumm (1.2-6.7)
[2018-06-30 07:44] LABS: Anion Gap 9.1 mmol/L (3-11); BUN 11 mg/dL (7-18); CO2 25.9 mmol/L (21.0-32.0); Calcium 7.9 mg/dL (8.5-10.1); Chloride 97 mmol/L (98-107); Glucose 87 mg/dL (70-100); Magnesium 1.9 mg/dL (1.8-2.4); Potassium 3.1 mmol/L (3.5-5.1); Sodium 132 mmol/L (136-145)
--- NOTE | 2018-06-30 07:53 | PDOC.CMIN ---
- If Service Date Differs Date of service: 06/30/18 Time of Service: 07:53 Care Management Initial Assess REASON FOR HOSPITALIZATION:: Facial cellulitis PAST MEDICAL HISTORY/PAST SURGICAL HISTORY:: Medical History: Hypertension (Chronic). Diabetes mellitus (Chronic) PREVIOUS FUNCTIONAL STATUS/SOCIAL/FAMILY SUPPORTS:: Ari lives in a single family house on [address] with his Betty and 2 sons age 11 and 13. 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 Ari is completely independent with all ADLs, driving etc. CURRENT FUNCTIONAL STATUS:: Ari was sitting up in bed during CM visit. He is still having discomfort in the areas of his cellulitis. He states it soto like a bad sunburn and that the swelling is extremely uncomfortable. Pain medication does help. Large areas of erythema and swelling are evident. ADVANCE DIRECTIVES:: None yet, but requested and received [facility] Advanced Directive Forms which he will review with his later today. CODE STATUS:: Full Code INSURANCE COVERAGE / FINANCIAL ISSUES:: [place] Other [employer] SPECIALIST CURRENT HOME/COMMUNITY SERVICES/EQUIPMENT:: None currently PRIMARY CARE PHYSICIAN:: Margarita Boswell MD POTENTIAL DISCHARGE NEEDS:: Possible outpatient antibiotic therapy. PATIENT/FAMILY EDUCATION NEEDS:: Discharge plan, limitations, follow up plan of care and Ask Me Three. ANTICIPATED BARRIERS TO DISCHARGE:: None TRANSPORTATION:: Via private automobile with family at time of discharge PLAN:: Ari is receiving IV antibiotics for facial cellulitis. It is anticipated he will return home without services unless he requires home or outpatient antibiotic therapy. will continue to provide support to patient, family, care team and discharge planning.
[2018-06-30 07:54] LABS: Hemoglobin A1C 8.3 % (4.5-6.2)
--- NOTE | 2018-06-30 08:01 | INITIAL_ITS ---
- If Service Date Differs Date of service: 06/30/18 Time of Service: 07:53 Care Management Initial Assess REASON FOR HOSPITALIZATION:: Facial cellulitis PAST MEDICAL HISTORY/PAST SURGICAL HISTORY:: Medical History: Hypertension (Chronic). Diabetes mellitus (Chronic) PREVIOUS FUNCTIONAL STATUS/SOCIAL/FAMILY SUPPORTS:: Ari lives in a single family house on [address] with his Betty and 2 sons age 11 and 13. 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 Ari is completely independent with all ADLs, driving etc. CURRENT FUNCTIONAL STATUS:: Ari was sitting up in bed during CM visit. He is still having discomfort in the areas of his cellulitis. He states it soto like a bad sunburn and that the swelling is extremely uncomfortable. Pain medication does help. Large areas of erythema and swelling are evident. ADVANCE DIRECTIVES:: None yet, but requested and received [facility] Advanced Directive Forms which he will review with his later today. CODE STATUS:: Full Code INSURANCE COVERAGE / FINANCIAL ISSUES:: [place] Other [employer] CURRENT HOME/COMMUNITY SERVICES/EQUIPMENT:: None currently PRIMARY CARE PHYSICIAN:: Margarita Boswell MD POTENTIAL DISCHARGE NEEDS:: Possible outpatient antibiotic therapy. PATIENT/FAMILY EDUCATION NEEDS:: Discharge plan, limitations, follow up plan of care and Ask Me Three. ANTICIPATED BARRIERS TO DISCHARGE:: None TRANSPORTATION:: Via private automobile with family at time of discharge PLAN:: Ari is receiving IV antibiotics for facial cellulitis. It is anticipated he will return home without services unless he requires home or outpatient antibiotic therapy. will continue to provide support to patient, family, care team and discharge planning.
[2018-06-30] MEDS: Potassium Chloride 20 MEQ TABCR 40 MEQ PO ×2 (08:43→19:20)
[2018-06-30] MEDS: amLODIPine 5 MG TAB PO (08:44)
[2018-06-30] MEDS: Acetaminophen 500 MG TAB 1000 MG PO ×2 (08:44→21:27)
[2018-06-30] MEDS: Normal Saline Flush 10 ML SYR IVP (09:30)
[2018-06-30] MEDS: Ketorolac 30 MG/ML VIAL IVP ×2 (09:30→22:21)
[2018-06-30] MEDS: Normal Saline 1,000 ML 150 ML IV (09:56)
--- NOTE | 2018-06-30 10:44 | PHARADMIT ---
Addendum entered by Nakul Bryant III 07/01/18 16:36: Pharmacy Note Subjective Patient improving, no more fever & chills. Facial redness improved but ears still swollen. Continue IV ABX for now Objective BP-160/99 Na-135 K+3.7 SCr-0.73 WBC-11.4 H&H,Plt-OK Wgt-102.1 kg BM today Assessment Chlorthalidone 25mg added, home BP med. Meropenem/Vancomycin continue. ? Trough tomorrow at 11am, not ordered as he may be switched to Oral ABX Plan Watch for ABX switch to Oral. If not obtain Vancomycin trough Original Note: Admission Pharmacy Clinical Review FACIAL CELLULITIS (PCN allergy) Code Status Full Code Current Weight Wgt-101.3 kg Renally Cleared and Narrow Therapeutic Index Meds CrCl~ 126 mL/min Meds-OK QTc Value / Action Taken QTc-432 na BP Control, Fever BP- 168/92 Tmax- 37.8C Electrolytes reviewed Na- 132 K+3.1 Mag-1.9 DVT Prophylaxis Lovenox Opiate Usage / Scheduled Bowel Regimen Ordered Yes Yes Plt/SCr for Heparin / Enoxaparin Plts-253 SCr-0.81 INR for Warfarin NA H/H stable, WBC/Bands H&H- 13.1/37.0 WBC- 13.38 Antibiotic appropriateness Meropenem, Vancomycin Cultures and Sensitivities CSF-No Growth/24hrs, Blood-Pending Surgical ABX d/c within 24 hr NA DM control / Insulin Dosing BG-87 HgA1c- 8.3%, Aspart Heart Failure (Check EF%) (YADIEL's, B-Block, Diuretics) Norvasc, IV to PO Switch No Home Meds Reviewed Yes Home Meds Not Ordered Chlorthalidone, Glipizide, Losartan, B-12, Metformin Comments
--- NOTE | 2018-06-30 12:15 | PGE_ITS ---
Date of Service Date of service: 06/30/18 Time of Service: 12:11 Assessment and Plan (1) Facial cellulitis: Current visit: Yes Status: Acute Possibly related to recent URI with sinus involvement, also has healing wounds that could possibly serve as portals for infection. Leukocytosis improved today at 13.38, febrile this morning, lactate normal on admission. LP without concerning findings. Facial and head CT on admission with findings consistent with facial cellulitis, no soft tissue mass or fluid collection. No drainage to culture. Blood cultures without growth at 24 hours. Continue IV antibiotics including Vanco and Meropenem. Decrease IV fluid rate. APAP for fevers. Toradol and APAP for headache, add tramadol for better pain control. Continue to follow WBC and cultures. (2) Diabetes mellitus: Current visit: Yes Status: Chronic Blood glucose 87 this morning. Continue to hold metformin. He has been seen by telehealth nurse educator who made recommendations for outpatient follow up. Continue carbohydrate counting diet. Continue glipizide, follow blood glucose, aspart per sliding scale. Adjust insulin as needed. Hgb A1c 8.3. (3) Dehydration: Current visit: Yes Status: Acute Received IV fluids overnight. Sodium and chloride remain low, continue IV fluids, decrease rate. Reassess chemistries in the morning. (4) Hypertension: Current visit: Yes Status: Chronic Continue to hold chlorthalidone. Follow blood pressures. Continue home dose of amlodipine. Resume ARB. Monitor renal function. (5) Hypokalemia: Current visit: Yes Status: Acute Received potassium supplementation. Continue to follow. (6) DVT prophylaxis: Current visit: Yes Status: Acute Subcutaneous lovenox. (7) Discharge planning issues: Current visit: Yes Status: Acute He is a FULL CODE. This case was discussed with Dr. Leonardo who is in agreement. Subjective Interval history since last seen: Ari Bernal continues to report feeling feverish today, he feels warm and his skin feels moist. He continues to have a headache which he describes as pressure bilaterally around his ears. He reports that his eye lids feel more swollen, he denies eye pain, vision changes, diplopia, blurred vision. His appetite has improved, he is eating and drinking, no nausea, vomiting or diarrhea. He denies dysuria or hematuria. He is voiding frequently with IV fluids. Exam Narrative Exam Narrative: General: sitting up in bed, awake and alert, in no acute distress. HEENT: pupils equal and round and reactive to light, EOMI, no pain with eye movement. mucous membranes moist, oropharynx clear skin: blanching erythema with marked edema of forehead, along sides of face (sparing nose, mouth and chin), including bilateral ears, around neck and down into chest. Ears swollen, external auditory canal edematous with scant cerumen, TMs ocampo, without drainage or erythema. Skin lesion to left chest, healing wound approximately 1 cm in diameter, no drainage, surrounded by erythema. Healing wound noted posterior to each ear, no active drainage. Neck: supple, no lymphadenopathy. Cardiovascular: heart has regular rate and rhythm, no murmur. Respiratory: respirations even and unlabored, lung sound clear to auscultation throughout. Gastrointestinal: normoactive bowel sounds, soft, nontender on palpation, nondistended. Extremities: no clubbing, cyanosis or edema. Objective Objective Clinical Data: Abnormal lab results 06/29/18 06/29/18 06/30/18 Range/Units 12:20 12:20 06:46 WBC (4.4-10.8) k/cumm RBC (4.50-6.00) m/cumm Hgb (13.5-17.5) g/dL Hct (40.0-50.0) % Absolute Neutrophils (1.2-6.7) k/cumm Absolute Monocytes (0.11-0.7) k/cumm Sodium 132 L (136-145) mmol/L Potassium 3.1 L (3.5-5.1) mmol/L Chloride 97 L (98-107) mmol/L Hemoglobin A1c (4.5-6.2) % Calcium 7.9 L (8.5-10.1) mg/dL CSF RBC 34 H (0-5) /mm3 CSF RBC (1) 167 H (0-5) /mm3 CSF Glucose 91 H (40-70) mg/dL CSF Total Protein 94 H (15-45) mg/dL 06/30/18 06/30/18 Range/Units 06:46 06:46 WBC 13.38 H (4.4-10.8) k/cumm RBC 4.27 L (4.50-6.00) m/cumm Hgb 13.1 L D (13.5-17.5) g/dL Hct 37.0 L (40.0-50.0) % Absolute Neutrophils 10.05 H (1.2-6.7) k/cumm Absolute Monocytes 1.32 H (0.11-0.7) k/cumm Sodium (136-145) mmol/L Potassium (3.5-5.1) mmol/L Chloride (98-107) mmol/L Hemoglobin A1c 8.3 H (4.5-6.2) % Calcium (8.5-10.1) mg/dL CSF RBC (0-5) /mm3 CSF RBC (1) (0-5) /mm3 CSF Glucose (40-70) mg/dL CSF Total Protein (15-45) mg/dL Vital Signs Temperature 37.1 C 06/30/18 10:56 Temperature Source Tympanic 06/30/18 10:56 Pulse 77 06/30/18 07:10 Pulse Rhythm Regular 06/30/18 08:55 Pulse 87 06/29/18 15:01 Respiratory Rate 18 06/30/18 07:10 Respiratory Effort Non-Labored 06/30/18 08:55 Respiratory Depth Normal 06/30/18 08:55 Respiratory Pattern Normal 06/30/18 08:55 Blood Pressure 168/92 H 06/30/18 07:45 Blood Pressure Mean 111 06/29/18 14:00 Blood Pressure Position Sitting 06/29/18 09:48 Pulse Oximetry 97 06/30/18 07:10 Oxygen Delivery Method Room Air 06/30/18 07:10 Oxygen Flow Rate 0 06/30/18 07:10 Pain Level 6 06/30/18 09:30 Comment 06/30/18 07:45 Intake & Output 06/29/18 06/30/18 06/30/18 23:59 11:59 23:59 Intake Total 2502.5 / 2502.5 1415 / 1415 Balance 2502.5 / 2502.5 1415 / 1415 Weight 99.79 kg 101.3 kg Intake: IV 2502.5 / 2502.5 1415 / 1415 Other: Stool Size Moderate Stool Characteristics Formed Laboratory Results WBC 13.38 k/cumm (4.4-10.8) H 06/30/18 06:46 RBC 4.27 m/cumm (4.50-6.00) L 06/30/18 06:46 Hgb 13.1 g/dL (13.5-17.5) L D 06/30/18 06:46 Hct 37.0 % (40.0-50.0) L 06/30/18 06:46 MCV 86.7 fL (80-95) 06/30/18 06:46 MCH 30.7 pg (27.0-33.0) 06/30/18 06:46 MCHC 35.4 g/dL (32.0-36.0) 06/30/18 06:46 RDW 12.0 % (11.8-14.1) 06/30/18 06:46 Plt Count 253 x1000/uL (130-400) 06/30/18 06:46 MPV 10.0 fL (8.0-11.0) 06/30/18 06:46 Immature Gran % 0.7 06/30/18 06:46 Neutrophils % 75.1 06/30/18 06:46 Lymphocytes % 13.7 06/30/18 06:46 Monocytes % 9.9 06/30/18 06:46 Eosinophils % 0.5 06/30/18 06:46 Basophils % 0.1 06/30/18 06:46 Absolute Neutrophils 10.05 k/cumm (1.2-6.7) H 06/30/18 06:46 Absolute Lymphocytes 1.83 k/cumm (1.2-3.4) 06/30/18 06:46 Absolute Monocytes 1.32 k/cumm (0.11-0.7) H 06/30/18 06:46 Absolute Eosinophils 0.07 k/cumm (0.0-0.7) 06/30/18 06:46 Absolute Basophils 0.01 k/cumm (0.0-0.2) 06/30/18 06:46 Xanthochromia Absent 06/29/18 12:20 ESR 92 MM/HR (0-15) H 06/29/18 09:57 Sodium 132 mmol/L (136-145) L 06/30/18 06:46 Potassium 3.1 mmol/L (3.5-5.1) L 06/30/18 06:46 Chloride 97 mmol/L (98-107) L 06/30/18 06:46 Carbon Dioxide 25.9 mmol/L (21.0-32.0) 06/30/18 06:46 Anion Gap 9.1 mmol/L (3-11) 06/30/18 06:46 BUN 11 mg/dL (7-18) 06/30/18 06:46 Creatinine 0.80 mg/dL (0.70-1.30) 06/30/18 06:46 Estimated GFR/1.73 m2 >= 60.00 (mL/min/1.73m2) 06/30/18 06:46 Glucose 87 mg/dL (70-100) D 06/30/18 06:46 Hemoglobin A1c 8.3 % (4.5-6.2) H 06/30/18 06:46 Lactate 1.1 mmol/L (0.6-1.4) 06/29/18 09:57 Calcium 7.9 mg/dL (8.5-10.1) L 06/30/18 06:46 Magnesium 1.9 mg/dL (1.8-2.4) 06/30/18 06:46 Total Bilirubin 1.5 mg/dL (0.2-1.0) H 06/29/18 09:57 AST 35 U/L (15-37) 06/29/18 09:57 ALT 69 U/L (12-78) 06/29/18 09:57 Alkaline Phosphatase 65 U/L (46-116) 06/29/18 09:57 Troponin I < 0.02 ng/mL (0.00-0.06) 06/29/18 09:57 C-Reactive Protein 22.83 mg/dL (0.0-0.3) H 06/29/18 09:57 Total Protein 9.3 g/dL (6.4-8.2) H 06/29/18 09:57 Albumin 3.4 g/dL (3.4-5.0) 06/29/18 09:57 Urine Color Lala (Yellow) 06/29/18 09:53 Urine Clarity Clear 06/29/18 09:53 Urine pH 6.0 (5-8) 06/29/18 09:53 Ur Specific [place] 1.025 (1.005-1.025) 06/29/18 09:53 Urine Protein >=300 mg/dL (Negative) H 06/29/18 09:53 Urine Ketones 40 mg/dL (Negative) H 06/29/18 09:53 Urine Blood Trace-lysed (Negative) H 06/29/18 09:53 Urine Nitrite Negative (Negative) 06/29/18 09:53 Urine Bilirubin Small (Negative) H 06/29/18 09:53 Urine Urobilinogen 2.0 EU/dL (Up TO 0.2) H 06/29/18 09:53 Ur Leukocyte Esterase Negative (Negative) 06/29/18 09:53 Urine RBC Negative (0-2) 06/29/18 09:53 Urine WBC 3-5 HPF (0-5) 06/29/18 09:53 Ur Epithelial Cells Negative HPF (Negative) 06/29/18 09:53 Urine Crystals Few amorphous HPF (Negative) 06/29/18 09:53 Urine Bacteria Moderate HPF (Negative) 06/29/18 09:53 Urine Casts 5-10 hyaline LPF (Negative) 06/29/18 09:53 Urine Mucus Moderate (Negative) 06/29/18 09:53 Urine Other Few renal (Negative) 06/29/18 09:53 Ur Culture Indicated? No 06/29/18 09:53 Urine Glucose Negative mg/dL (Negative) 06/29/18 09:53 CSF Tube Number 2 06/29/18 12:20 CSF Color Colorless 06/29/18 12:20 CSF Clarity Clear 06/29/18 12:20 CSF WBC 5 /mm3 (0-5) 06/29/18 12:20 CSF RBC 34 /mm3 (0-5) H 06/29/18 12:20 CSF RBC (1) 167 /mm3 (0-5) H 06/29/18 12:20 CSF Diff Comment 06/29/18 12:20 CSF Glucose 91 mg/dL (40-70) H 06/29/18 12:20 CSF Total Protein 94 mg/dL (15-45) H 06/29/18 12:20
--- NOTE | 2018-06-30 12:28 | DM INPTCON_ITS ---
Date of service: 06/30/18 Time of Service: 11:54 Diabetes Inpatient Consult DESCRIPTION/ASSESSMENT: Appreciate diabetes consult for Mr. Bernal who is hospitalized with facial cellulitis. Blood sugars this hospitalization 89-141 using sensitive insulin correction and glipizide. A1c 8.3 BMI 29 Mr. Bernal manages diabetes with Metformin and Glipizide at home. He states he was prescribed insulin but it was prohibitively expensive. He states he only occasionally monitors his blood sugar at home. He states he can feel it in his face when his blood sugars are high. He does not know how high his blood sugar is when he has symptoms. He wishes he could walk but does not have an extra moment to do this. States he lives with his who is vegetarian and his two teenage sons. He describes high stress with his grandmother recently placed in a residential and his father's in March. He is having to settle a complex estate and deal with the emotional effects of his father's terrible ; and he is parenting teenage boys. He states his peaceful time is driving 1/2 hour to work every day. INTERVENTION: Mr. Bernal is clear he has no capacity to make lifestyle changes at this time. Even with that he engaged easily in conversation. Discussed possibilities of self management given his self-described extreme stress level. He states he understand he may shorten his life by the decisions he makes at this time, but does not feel he can do otherwise and makes peace with this. Discussed monitoring especially when attempting a change to see efficacy of change, and when presumed high blood sugars to see at what blood sugars symptoms occur. Discussed A1c results. Discussed stress management and deep breathing especially. Discussed medication and to look at [facility] for insulin if deemed helpful to improving A1c. PLAN: Discuss with Dr. Elbert Wilson and insulin Deep breathe when he can Follow up as desired for DSME Time Spent in Nutritional Counseling and Treatment: 20 minutes face to face inpatient
--- NOTE | 2018-06-30 15:32 | CHAPLAIN ---
Ari was sitting up on the edge of his bed when I visited this morning. He was friendly and easily engaged in a conversation. He talked about the discomfort caused by the swelling around his face, neck and ears, and how it's made it difficult for him to get comfortable in bed and sleep. His will be in later today, and his sons, 11 and 13 years old, may visit as well. Ari said he thought he'd be here through the weekend. He remains pleasant although he is uncomfortable.
[2018-06-30] MEDS: Enoxaparin 40 MG/0.4 ML SYR SC (16:12)
[2018-06-30] MEDS: Normal Saline 1,000 ML 50 ML IV (19:30)
[2018-06-30] MEDS: Melatonin 3 MG TAB PO (21:27)
[2018-07-01 07:12] LABS: Abs Immature Grans 0.11 k/cumm (0.0-0.09); Absolute Basophil Count 0.04 k/cumm (0.0-0.2); Absolute Eosinophil Count 0.15 k/cumm (0.0-0.7); Absolute Lymphocyte Count 2.16 k/cumm (1.2-3.4); Basophils % 0.4; Eosinophils % 1.4; HCT 36.1 % (40.0-50.0); HGB 12.8 g/dL (13.5-17.5); Lymphocytes % 19.6; Mean Corp. HGB Concentration 35.5 g/dL (32.0-36.0); Mean Corpuscular Hemoglobin 30.8 pg (27.0-33.0); Mean Corpuscular Volume 86.8 fL (80-95); Mean Platelet Volume 9.9 fL (8.0-11.0); Monocytes % 10.1; Neutrophils % 67.5; Platelet Count 250 x1000/uL (130-400); RBC 4.16 m/cumm (4.50-6.00); White Blood Cell Count 11.04 k/cumm (4.4-10.8)
[2018-07-01 07:16] LABS: Absolute Monocyte Count 1.12 k/cumm (0.11-0.7); Absolute Neutrophil Count 7.45 k/cumm (1.2-6.7)
[2018-07-01 07:23] LABS: Anion Gap 8.8 mmol/L (3-11); BUN 12 mg/dL (7-18); CO2 26.2 mmol/L (21.0-32.0); CREATININE 0.73 mg/dL (0.70-1.30); Chloride 100 mmol/L (98-107); Glucose 122 mg/dL (70-100); Magnesium 2.1 mg/dL (1.8-2.4); Potassium 3.7 mmol/L (3.5-5.1); Sodium 135 mmol/L (136-145)
--- NOTE | 2018-07-01 07:46 | PDOC.CMPRO ---
- If Service Date Differs Date of service: 07/01/18 Time of Service: 07:46 Care Management Progress Note S/O:Ari was sitting up in a chair during CM visit. He remains pleasant and friendly, smiling and joking with staff. He says he feels a slight improvement in the swelling on his forhead but his face, ears and around his eyes are still really uncomfortable. He received Toradol last night and this morning which he says relieved his symptoms. Ari misses his family and is hoping to be discharged in the next day or two. He and his family have Easter traditions that he does not want to miss. CM will continue to follow. A:Ari is a very pleasant 47 year old gentleman admitted with facial cellulitis. P:Ari is receiving IV antibiotics for facial cellulitis. It is anticipated he will return home without services unless he requires home or outpatient antibiotic therapy. CM will continue to provide support to patient, family, care team and discharge planning.
--- NOTE | 2018-07-01 07:59 | CMPROGNOTE_ITS ---
- If Service Date Differs Date of service: 07/01/18 Time of Service: 07:46 Care Management Progress Note S/O:Ari was sitting up in a chair during CM visit. He remains pleasant and friendly, smiling and joking with staff. He says he feels a slight improvement in the swelling on his forhead but his face, ears and around his eyes are still really uncomfortable. He received Toradol last night and this morning which he says relieved his symptoms. Ari misses his family and is hoping to be dis charged in the next day or two. He and his family have Easter traditions that he does not want to miss. CM will continue to follow. A:Ari is a very pleasant 47 year old gentleman admitted with facial cellulitis. P:Ari is receiving IV antibiotics for facial cellulitis. It is anticipated he will return home without services unless he requires home or outpatient antibiotic therapy. CM will continue to provide support to patient, family, care team and discharge planning.
[2018-07-01] MEDS: Potassium Chloride 20 MEQ TABCR 40 MEQ PO ×2 (08:26→19:57)
[2018-07-01] MEDS: amLODIPine 5 MG TAB PO (08:26)
[2018-07-01] MEDS: Losartan 50 MG TAB 100 MG PO (08:26)
[2018-07-01 08:30] VITALS: BP 166/110; PULSE 71; RESP 17; TEMP 37.3; O2SAT 99
[2018-07-01 09:23] VITALS: TEMP 37.3
[2018-07-01] MEDS: Ketorolac 30 MG/ML VIAL IVP (09:23)
[2018-07-01] MEDS: POTASSIUM CHLORIDE 20 MEQ, POTASSIUM CHLORIDE 10 MEQ 30 MEQ PO (09:24)
[2018-07-01] MEDS: Lactobacillus Acidophilus CAP 1 CAP PO (10:20)
[2018-07-01] MEDS: Normal Saline Flush 10 ML SYR IVP ×3 (10:29→17:34)
[2018-07-01 11:30] VITALS: BP 150/98
[2018-07-01] MEDS: Insulin Aspart 300 UNITS/3 ML PEN SC ×2 (11:52→17:17)
[2018-07-01 14:14] VITALS: BP 172/107; PULSE 73
[2018-07-01 14:15] VITALS: BP 162/101; BP 166/102; BP 168/104; BP 177/104; PULSE 73; RESP 20; TEMP 36.7; O2SAT 97
--- NOTE | 2018-07-01 14:40 | W.PM.PROGNOT ---
Date of Service Date of service: 07/01/18 Time of Service: 15:12 Assessment and Plan (1) Facial cellulitis: Current visit: Yes Status: Acute With uncertain portal of entry, but with multiple breaks in the skin and previous URI. Leukocytosis improved today to 11.04, afebrile overnight, lactate normal on admission. LP without concerning findings. Facial and head CT on admission with findings consistent with facial cellulitis, no soft tissue mass or fluid collection. No active drainage to culture. Blood cultures without growth at 48 hours. Given high fever and location of cellulitis, continue IV antibiotics including Vanco and Meropenem. Discontinue IV fluids. APAP for fevers. Toradol and APAP for headache, add tramadol for pain control as needed. Continue to follow WBC and cultures. If he continues to improve, consider transition to oral antibiotics. (2) Diabetes mellitus: Current visit: Yes Status: Chronic Blood glucose 122 this morning. Continue to hold metformin. He has been seen by staff development educator who made recommendations for outpatient follow up. Continue carbohydrate counting diet. Continue glipizide, follow blood glucose, aspart per sliding scale. Adjust insulin as needed. Hgb A1c 8.3. (3) Dehydration: Current visit: Yes Status: Acute Resolved. IV fluids discontinued. (4) Hypertension: Current visit: Yes Status: Chronic Blood pressures increasing. Resume home antihypertensive regimen. (5) Hypokalemia: Current visit: Yes Status: Acute Resolved. Continue to follow chemistries. (6) DVT prophylaxis: Current visit: Yes Status: Acute Subcutaneous lovenox. (7) Discharge planning issues: Current visit: Yes Status: Acute He is a FULL CODE. This case was discussed with Dr. Leonardo who is in agreement. Subjective Interval history since last seen: Mr. Bernal is feeling better today. He no longer feels like he has a fever or chills. He reports improvement in the redness on his forehead, his ears are still sore and swollen. The headache has resolved. He denies eye pain, vision changes, diplopia, blurred vision. He is tired and trying to get some sleep. He has been ambulating in the halls. He is eating and drinking without nausea, vomiting or diarrhea. He denies dysuria or hematuria. Exam Narrative Exam Narrative: General: sitting up in bed, awake and alert, in no acute distress. HEENT: pupils equal and round and reactive to light, EOMI, no pain with eye movement. Mucous membranes moist, oropharynx clear skin: edema improving on forehead, erythema receding on forehead, Continues to have erythema around eyes with edematous upper and lower eye lids. Ears remain with erythema and edema, extends around neck and down into chest. Skin lesion to left chest, healing, wound approximately 1 cm in diameter, no active drainage, surrounded by erythema. Few small scattered healing wounds on head. Neck: supple, no lymphadenopathy. Cardiovascular: heart has regular rate and rhythm, no murmur. Respiratory: respirations even and unlabored, lung sound clear to auscultation throughout. Gastrointestinal: normoactive bowel sounds, soft, nontender on palpation, nondistended. Extremities: no clubbing, cyanosis or edema. Objective Objective Clinical Data: Abnormal lab results 07/01/18 07/01/18 Range/Units 06:37 06:37 WBC 11.04 H (4.4-10.8) k/cumm RBC 4.16 L (4.50-6.00) m/cumm Hgb 12.8 L (13.5-17.5) g/dL Hct 36.1 L (40.0-50.0) % Absolute Neutrophils 7.45 H (1.2-6.7) k/cumm Absolute Monocytes 1.12 H (0.11-0.7) k/cumm Sodium 135 L (136-145) mmol/L Glucose 122 H (70-100) mg/dL Calcium 8.0 L (8.5-10.1) mg/dL Vital Signs Temperature 37.3 C 07/01/18 09:23 Temperature Source Tympanic 07/01/18 08:30 Pulse 71 07/01/18 08:30 Pulse Rhythm Regular 07/01/18 08:30 Pulse 87 06/29/18 15:01 Respiratory Rate 17 07/01/18 08:30 Respiratory Effort 07/01/18 08:30 Respiratory Depth Normal 07/01/18 08:30 Respiratory Pattern Normal 07/01/18 08:30 Blood Pressure 150/98 H 07/01/18 11:30 Blood Pressure Mean 111 06/29/18 14:00 Blood Pressure Position Sitting 06/29/18 09:48 Pulse Oximetry 99 07/01/18 08:30 Oxygen Delivery Method Room Air 07/01/18 08:30 Oxygen Flow Rate 0 07/01/18 08:30 Pain Level 0 07/01/18 10:23 Comment 06/30/18 07:45 Intake & Output 06/30/18 07/01/18 07/01/18 23:59 11:59 23:59 Intake Total 1750 / 3265 2162.5 / 2652.5 490 / 2652.5 Balance 1750 / 3265 2162.5 / 2652.5 490 / 2652.5 Weight 102.1 kg Intake: IV 600 / 2115 1202.5 / 1452.5 250 / 1452.5 Oral 1150 / 1150 960 / 1200 240 / 1200 Other: Urine Color Yellow Pale Urine Appearance Clear Clear Urine Odor Normal Comment Pt voiding ad bernabe in toilet. No hat/measurement. Pt denies sx. Clear in color. pt reported he went pee in the toilet and didnt measure the amount, pt is independent Stool Size Moderate Stool Characteristics Formed Voiding Methods Toilet Toilet Laboratory Results WBC 11.04 k/cumm (4.4-10.8) H 07/01/18 06:37 RBC 4.16 m/cumm (4.50-6.00) L 07/01/18 06:37 Hgb 12.8 g/dL (13.5-17.5) L 07/01/18 06:37 Hct 36.1 % (40.0-50.0) L 07/01/18 06:37 MCV 86.8 fL (80-95) 07/01/18 06:37 MCH 30.8 pg (27.0-33.0) 07/01/18 06:37 MCHC 35.5 g/dL (32.0-36.0) 07/01/18 06:37 RDW 12.0 % (11.8-14.1) 07/01/18 06:37 Plt Count 250 x1000/uL (130-400) 07/01/18 06:37 MPV 9.9 fL (8.0-11.0) 07/01/18 06:37 Immature Gran % 1.0 07/01/18 06:37 Neutrophils % 67.5 07/01/18 06:37 Lymphocytes % 19.6 07/01/18 06:37 Monocytes % 10.1 07/01/18 06:37 Eosinophils % 1.4 07/01/18 06:37 Basophils % 0.4 07/01/18 06:37 Absolute Neutrophils 7.45 k/cumm (1.2-6.7) H 07/01/18 06:37 Absolute Lymphocytes 2.16 k/cumm (1.2-3.4) 07/01/18 06:37 Absolute Monocytes 1.12 k/cumm (0.11-0.7) H 07/01/18 06:37 Absolute Eosinophils 0.15 k/cumm (0.0-0.7) 07/01/18 06:37 Absolute Basophils 0.04 k/cumm (0.0-0.2) 07/01/18 06:37 Xanthochromia Absent 06/29/18 12:20 ESR 92 MM/HR (0-15) H 06/29/18 09:57 Sodium 135 mmol/L (136-145) L 07/01/18 06:37 Potassium 3.7 mmol/L (3.5-5.1) 07/01/18 06:37 Chloride 100 mmol/L (98-107) 07/01/18 06:37 Carbon Dioxide 26.2 mmol/L (21.0-32.0) 07/01/18 06:37 Anion Gap 8.8 mmol/L (3-11) 07/01/18 06:37 BUN 12 mg/dL (7-18) 07/01/18 06:37 Creatinine 0.73 mg/dL (0.70-1.30) 07/01/18 06:37 Estimated GFR/1.73 m2 >= 60.00 (mL/min/1.73m2) 07/01/18 06:37 Glucose 122 mg/dL (70-100) H 07/01/18 06:37 Hemoglobin A1c 8.3 % (4.5-6.2) H 06/30/18 06:46 Lactate 1.1 mmol/L (0.6-1.4) 06/29/18 09:57 Calcium 8.0 mg/dL (8.5-10.1) L 07/01/18 06:37 Magnesium 2.1 mg/dL (1.8-2.4) 07/01/18 06:37 Total Bilirubin 1.5 mg/dL (0.2-1.0) H 06/29/18 09:57 AST 35 U/L (15-37) 06/29/18 09:57 ALT 69 U/L (12-78) 06/29/18 09:57 Alkaline Phosphatase 65 U/L (46-116) 06/29/18 09:57 Troponin I < 0.02 ng/mL (0.00-0.06) 06/29/18 09:57 C-Reactive Protein 22.83 mg/dL (0.0-0.3) H 06/29/18 09:57 Total Protein 9.3 g/dL (6.4-8.2) H 06/29/18 09:57 Albumin 3.4 g/dL (3.4-5.0) 06/29/18 09:57 Urine Color [place]ala (Yellow) 06/29/18 09:53 Urine Clarity Clear 06/29/18 09:53 Urine pH 6.0 (5-8) 06/29/18 09:53 Ur Specific [place] 1.025 (1.005-1.025) 06/29/18 09:53 Urine Protein >=300 mg/dL (Negative) H 06/29/18 09:53 Urine Ketones 40 mg/dL (Negative) H 06/29/18 09:53 Urine Blood Trace-lysed (Negative) H 06/29/18 09:53 Urine Nitrite Negative (Negative) 06/29/18 09:53 Urine Bilirubin Small (Negative) H 06/29/18 09:53 Urine Urobilinogen 2.0 EU/dL (Up TO 0.2) H 06/29/18 09:53 Ur Leukocyte Esterase Negative (Negative) 06/29/18 09:53 Urine RBC Negative (0-2) 06/29/18 09:53 Urine WBC 3-5 HPF (0-5) 06/29/18 09:53 Ur Epithelial Cells Negative HPF (Negative) 06/29/18 09:53 Urine Crystals Few amorphous HPF (Negative) 06/29/18 09:53 Urine Bacteria Moderate HPF (Negative) 06/29/18 09:53 Urine Casts 5-10 hyaline LPF (Negative) 06/29/18 09:53 Urine Mucus Moderate (Negative) 06/29/18 09:53 Urine Other Few renal (Negative) 06/29/18 09:53 Ur Culture Indicated? No 06/29/18 09:53 Urine Glucose Negative mg/dL (Negative) 06/29/18 09:53 CSF Tube Number 2 06/29/18 12:20 CSF Color Colorless 06/29/18 12:20 CSF Clarity Clear 06/29/18 12:20 CSF WBC 5 /mm3 (0-5) 06/29/18 12:20 CSF RBC 34 /mm3 (0-5) H 06/29/18 12:20 CSF RBC (1) 167 /mm3 (0-5) H 06/29/18 12:20 CSF Diff Comment 06/29/18 12:20 CSF Glucose 91 mg/dL (40-70) H 06/29/18 12:20 CSF Total Protein 94 mg/dL (15-45) H 06/29/18 12:20 Path Cons Comment See comment 06/29/18 12:20
[2018-07-01 15:25] VITALS: BP 160/99; PULSE 70; RESP 18; TEMP 36.9; O2SAT 96
[2018-07-01] MEDS: Enoxaparin 40 MG/0.4 ML SYR SC (15:45)
[2018-07-01] MEDS: Chlorthalidone 25 MG TAB PO ×2 (15:54→15:55)
[2018-07-01] MEDS: Acetaminophen 500 MG TAB 1000 MG PO (21:59)
[2018-07-01] MEDS: Melatonin 3 MG TAB PO (21:59)
[2018-07-02] MEDS: Normal Saline Flush 10 ML SYR IVP ×3 (02:04→10:06)
[2018-07-02 02:10] VITALS: BP 160/104; PULSE 64; RESP 21; TEMP 37.1; O2SAT 96
[2018-07-02] MEDS: Ketorolac 30 MG/ML VIAL IVP (02:13)
[2018-07-02 07:18] VITALS: BP 160/120; PULSE 64; RESP 20; TEMP 36.5; O2SAT 97
[2018-07-02 07:38] LABS: Abs Immature Grans 0.17 k/cumm (0.0-0.09); Absolute Basophil Count 0.06 k/cumm (0.0-0.2); Absolute Eosinophil Count 0.23 k/cumm (0.0-0.7); Absolute Lymphocyte Count 2.88 k/cumm (1.2-3.4); Absolute Monocyte Count 0.88 k/cumm (0.11-0.7); Absolute Neutrophil Count 5.14 k/cumm (1.2-6.7); Basophils % 0.6; Eosinophils % 2.5; HCT 38.9 % (40.0-50.0); HGB 13.6 g/dL (13.5-17.5); Immature Grans % 1.8; Lymphocytes % 30.8; Mean Corpuscular Hemoglobin 30.7 pg (27.0-33.0); Mean Corpuscular Volume 87.8 fL (80-95); Mean Platelet Volume 9.8 fL (8.0-11.0); Monocytes % 9.4; Neutrophils % 54.9; Platelet Count 323 x1000/uL (130-400); RBC 4.43 m/cumm (4.50-6.00); RBC Distribution Width 12.2 % (11.8-14.1); White Blood Cell Count 9.36 k/cumm (4.4-10.8)
[2018-07-02 07:51] LABS: Anion Gap 6.8 mmol/L (3-11); BUN 11 mg/dL (7-18); CO2 28.2 mmol/L (21.0-32.0); CREATININE 0.74 mg/dL (0.70-1.30); Calcium 8.7 mg/dL (8.5-10.1); Chloride 100 mmol/L (98-107); Glucose 100 mg/dL (70-100); Potassium 4.5 mmol/L (3.5-5.1); Sodium 135 mmol/L (136-145)
[2018-07-02 07:55] LABS: C-Reactive Protein 6.96 mg/dL (0.0-0.3); Magnesium 2.2 mg/dL (1.8-2.4)
[2018-07-02 08:14] LABS: Diff Comment Agrees w/ Instrument
[2018-07-02] MEDS: Lactobacillus Acidophilus CAP 1 CAP PO (08:22)
[2018-07-02] MEDS: Chlorthalidone 25 MG TAB PO (08:22)
[2018-07-02] MEDS: Losartan 50 MG TAB 100 MG PO (08:22)
[2018-07-02] MEDS: Potassium Chloride 20 MEQ TABCR 40 MEQ PO (08:22)
[2018-07-02] MEDS: amLODIPine 5 MG TAB PO ×2 (08:23→11:27)
[2018-07-02 11:15] VITALS: BP 164/110; PULSE 64
[2018-07-02] MEDS: Insulin Aspart 300 UNITS/3 ML PEN SC ×2 (12:24→16:48)
--- NOTE | 2018-07-02 12:27 | PGE_ITS ---
Date of Service Date of service: 07/02/18 Time of Service: 12:17 Assessment and Plan (1) Facial cellulitis: Start date: 07/02/18 Start time: 12:17 Current visit: Yes Status: Acute With uncertain portal of entry, but with multiple breaks in the skin and previous URI. Leukocytosis has normalized today. Afebrile since . Discontinued merepenam and vanco, switched to PO keflex and bactrim. If patient tolerates over night and WBC stays normalized with no fevers, possible discharge tomorrw. Facial and head CT on admission with findings consistent with facial cellulitis, no soft tissue mass or fluid collection. No active drainage to culture. Blood cultures without growth at 72 hours. Toradol and APAP for headache, add tramadol for pain control as needed. (2) Diabetes mellitus: Start date: 07/02/18 Start time: 12:20 Current visit: Yes Status: Chronic SSI with carb control diet. BGL was 100 by am labs. (3) Dehydration: Start date: 07/02/18 Start time: 12:21 Current visit: Yes Status: Acute Resolved. (4) Hypertension: Start date: 07/02/18 Start time: 12:21 Current visit: Yes Status: Chronic Blood pressure elevated, diastolic 120, increased amlodipine to 10 mg, will need to follow up with PCP regarding bp and medication titration (5) Hypokalemia: Start date: 07/02/18 Start time: 12:22 Current visit: Yes Status: Acute Resolved. (6) DVT prophylaxis: Start date: 07/02/18 Start time: 12:22 Current visit: Yes Status: Acute Subcutaneous lovenox. (7) Discharge planning issues: Start date: 07/02/18 Start time: 12:22 Current visit: Yes Status: Acute He is a FULL CODE. Subjective Patient reports: feels better Interval history since last seen: Mr. Bernal is feeling better today. He states his swelling alot better than yesterday. Last night he could lay his head down on his side and did not feel as much pain. Bilateral ears are still swollen with erythema, according to patient much better. Transitioned to PO bactrim and kefelx will recheck labs in am, if patient is afebrile with a normal white count possible discharge home tomorrow. Exam Const General: cooperative, comfortable and no acute distress HENMS Ears: external ears abnormal (swelling with erythema) Chest Chest: normal inspection of the chest Resp Effort & Inspection: normal respiratory effort and able to speak in complete sentences Auscultation: clear to auscultation bilaterally Cardio Jugular venous pressure: no JVD Palpation: normal PMI Rate: regular rate Rhythm: regular rhythm Heart Sounds: S1 normal and S2 normal GI Inspection: normal to inspection Palpation: soft Auscultation: normal bowel sounds Skin General skin exam: no rashes or lesions noted Neuro General: alert, awake and oriented x3 Extrem General: normal to inspection Objective Objective Clinical Data: Abnormal lab results 07/02/18 07/02/18 07/02/18 Range/Units 06:36 06:36 06:36 RBC 4.43 L (4.50-6.00) m/cumm Hct 38.9 L (40.0-50.0) % Absolute Monocytes 0.88 H (0.11-0.7) k/cumm Sodium 135 L (136-145) mmol/L C-Reactive Protein 6.96 H (0.0-0.3) mg/dL Vital Signs Temperature 36.5 C 07/02/18 07:18 Temperature Source Tympanic 07/02/18 07:18 Pulse 64 07/02/18 07:18 Pulse Rhythm Regular 07/02/18 07:30 Pulse 87 06/29/18 15:01 Respiratory Rate 20 07/02/18 07:18 Respiratory Effort Non-Labored 07/02/18 07:30 Respiratory Depth Normal 07/02/18 07:30 Respiratory Pattern Normal 07/02/18 07:30 Blood Pressure 160/120 H 07/02/18 07:18 Blood Pressure Mean 111 06/29/18 14:00 Blood Pressure Position Sitting 06/29/18 09:48 Pulse Oximetry 97 07/02/18 07:18 Oxygen Delivery Method Room Air 07/02/18 07:18 Oxygen Flow Rate 0 07/02/18 07:18 Pain Level 6 07/02/18 02:13 Comment 07/02/18 07:18 Intake & Output 07/01/18 07/02/18 07/02/18 23:59 11:59 23:59 Intake Total 1320 / 3482.5 2070 / 2070 Output Total 800 / 800 Balance 1320 / 3482.5 1270 / 1270 Weight 99.5 kg Intake: IV 600 / 1802.5 470 / 470 Oral 720 / 1680 1600 / 1600 Output: Urine 800 / 800 Other: Urine Color Yellow Urine Appearance Clear Comment Urine not seen. Patient independently voids in bathroom multiple times Hat replaced in toilet. This nurse educated on the purpose and importance of monitoring I&O. Voiding Methods Toilet Toilet Laboratory Results WBC 9.36 k/cumm (4.4-10.8) 07/02/18 06:36 RBC 4.43 m/cumm (4.50-6.00) L 07/02/18 06:36 Hgb 13.6 g/dL (13.5-17.5) 07/02/18 06:36 Hct 38.9 % (40.0-50.0) L 07/02/18 06:36 MCV 87.8 fL (80-95) 07/02/18 06:36 MCH 30.7 pg (27.0-33.0) 07/02/18 06:36 MCHC 35.0 g/dL (32.0-36.0) 07/02/18 06:36 RDW 12.2 % (11.8-14.1) 07/02/18 06:36 Plt Count 323 x1000/uL (130-400) 07/02/18 06:36 MPV 9.8 fL (8.0-11.0) 07/02/18 06:36 Immature Gran % 1.8 07/02/18 06:36 Neutrophils % 54.9 07/02/18 06:36 Lymphocytes % 30.8 07/02/18 06:36 Monocytes % 9.4 07/02/18 06:36 Eosinophils % 2.5 07/02/18 06:36 Basophils % 0.6 07/02/18 06:36 Absolute Neutrophils 5.14 k/cumm (1.2-6.7) 07/02/18 06:36 Absolute Lymphocytes 2.88 k/cumm (1.2-3.4) 07/02/18 06:36 Absolute Monocytes 0.88 k/cumm (0.11-0.7) H 07/02/18 06:36 Absolute Eosinophils 0.23 k/cumm (0.0-0.7) 07/02/18 06:36 Absolute Basophils 0.06 k/cumm (0.0-0.2) 07/02/18 06:36 Differential Comment Agrees w/ instrument 07/02/18 06:36 Xanthochromia Absent 06/29/18 12:20 ESR 92 MM/HR (0-15) H 06/29/18 09:57 Sodium 135 mmol/L (136-145) L 07/02/18 06:36 Potassium 4.5 mmol/L (3.5-5.1) D 07/02/18 06:36 Chloride 100 mmol/L (98-107) 07/02/18 06:36 Carbon Dioxide 28.2 mmol/L (21.0-32.0) 07/02/18 06:36 Anion Gap 6.8 mmol/L (3-11) 07/02/18 06:36 BUN 11 mg/dL (7-18) 07/02/18 06:36 Creatinine 0.74 mg/dL (0.70-1.30) 07/02/18 06:36 Estimated GFR/1.73 m2 >= 60.00 (mL/min/1.73m2) 07/02/18 06:36 Glucose 100 mg/dL (70-100) 07/02/18 06:36 Hemoglobin A1c 8.3 % (4.5-6.2) H 06/30/18 06:46 Lactate 1.1 mmol/L (0.6-1.4) 06/29/18 09:57 Calcium 8.7 mg/dL (8.5-10.1) 07/02/18 06:36 Magnesium 2.2 mg/dL (1.8-2.4) 07/02/18 06:36 Total Bilirubin 1.5 mg/dL (0.2-1.0) H 06/29/18 09:57 AST 35 U/L (15-37) 06/29/18 09:57 ALT 69 U/L (12-78) 06/29/18 09:57 Alkaline Phosphatase 65 U/L (46-116) 06/29/18 09:57 Troponin I < 0.02 ng/mL (0.00-0.06) 06/29/18 09:57 C-Reactive Protein 6.96 mg/dL (0.0-0.3) H 07/02/18 06:36 Total Protein 9.3 g/dL (6.4-8.2) H 06/29/18 09:57 Albumin 3.4 g/dL (3.4-5.0) 06/29/18 09:57 Urine Color [place] (Yellow) 06/29/18 09:53 Urine Clarity Clear 06/29/18 09:53 Urine pH 6.0 (5-8) 06/29/18 09:53 Ur Specific [place] 1.025 (1.005-1.025) 06/29/18 09:53 Urine Protein >=300 mg/dL (Negative) H 06/29/18 09:53 Urine Ketones 40 mg/dL (Negative) H 06/29/18 09:53 Urine Blood Trace-lysed (Negative) H 06/29/18 09:53 Urine Nitrite Negative (Negative) 06/29/18 09:53 Urine Bilirubin Small (Negative) H 06/29/18 09:53 Urine Urobilinogen 2.0 EU/dL (Up TO 0.2) H 06/29/18 09:53 Ur Leukocyte Esterase Negative (Negative) 06/29/18 09:53 Urine RBC Negative (0-2) 06/29/18 09:53 Urine WBC 3-5 HPF (0-5) 06/29/18 09:53 Ur Epithelial Cells Negative HPF (Negative) 06/29/18 09:53 Urine Crystals Few amorphous HPF (Negative) 06/29/18 09:53 Urine Bacteria Moderate HPF (Negative) 06/29/18 09:53 Urine Casts 5-10 hyaline LPF (Negative) 06/29/18 09:53 Urine Mucus Moderate (Negative) 06/29/18 09:53 Urine Other Few renal (Negative) 06/29/18 09:53 Ur Culture Indicated? No 06/29/18 09:53 Urine Glucose Negative mg/dL (Negative) 06/29/18 09:53 CSF Tube Number 2 06/29/18 12:20 CSF Color Colorless 06/29/18 12:20 CSF Clarity Clear 06/29/18 12:20 CSF WBC 5 /mm3 (0-5) 06/29/18 12:20 CSF RBC 34 /mm3 (0-5) H 06/29/18 12:20 CSF RBC (1) 167 /mm3 (0-5) H 06/29/18 12:20 CSF Diff Comment 06/29/18 12:20 CSF Glucose 91 mg/dL (40-70) H 06/29/18 12:20 CSF Total Protein 94 mg/dL (15-45) H 06/29/18 12:20 Path Cons Comment See comment 06/29/18 12:20
[2018-07-02 13:15] VITALS: BP 160/101
[2018-07-02] MEDS: Cephalexin 500 MG CAP PO ×2 (14:39→20:07)
[2018-07-02 15:33] VITALS: BP 176/120; PULSE 70; RESP 18; TEMP 36.9; O2SAT 98
[2018-07-02] MEDS: Enoxaparin 40 MG/0.4 ML SYR SC (15:45)
--- NOTE | 2018-07-02 16:51 | PDOC.CMPRO ---
- If Service Date Differs Date of service: 07/02/18 Time of Service: 16:51 Care Management Progress Note S/O:Ari is alert and sitting up in bed during CM visit. He reports his face feels better. He reports he can still feel some discomfort and swelling in his ears. He reports he was feeling discouraged yesterday due to the discomfort and swelling, he admits he does not sit still well. Today he reports feeling more confident that he is improving and he may be able to discharge home on Wednesday. Today he was transition to oral antibiotics and will be evaluated over night for reoccurrence of symptoms. His blood pressure remains elevated medication are being adjusted he will continue to work with primary care for ongoing management of HTN. A:Ari is a very pleasant 47 year old gentleman admitted with facial cellulitis. P:Ari transition to oral antibiotics for facial cellulitis today. Anticipate he will return home without services unless he requires home or outpatient antibiotic therapy. will continue to provide support to patient, family, care team and discharge planning.
[2018-07-02] MEDS: Sulfameth/Trimeth DS TAB 2 TAB PO (20:07)
[2018-07-02] MEDS: Melatonin 3 MG TAB PO (22:28)
[2018-07-02 23:16] VITALS: BP 156/110; PULSE 78; RESP 18; TEMP 37; O2SAT 98
[2018-07-03 07:33] LABS: Abs Immature Grans 0.45 k/cumm (0.0-0.09); HCT 45.4 % (40.0-50.0); HGB 16.4 g/dL (13.5-17.5); Mean Corp. HGB Concentration 36.1 g/dL (32.0-36.0); Mean Corpuscular Volume 85.8 fL (80-95); Mean Platelet Volume 9.6 fL (8.0-11.0); Platelet Count 485 x1000/uL (130-400); RBC 5.29 m/cumm (4.50-6.00); White Blood Cell Count 11.11 k/cumm (4.4-10.8)
[2018-07-03 07:43] LABS: Anion Gap 13.2 mmol/L (3-11); BUN 13 mg/dL (7-18); C-Reactive Protein 4.72 mg/dL (0.0-0.3); CO2 25.8 mmol/L (21.0-32.0); CREATININE 1.08 mg/dL (0.70-1.30); Calcium 9.7 mg/dL (8.5-10.1); Chloride 94 mmol/L (98-107); Glucose 147 mg/dL (70-100); Potassium 4.2 mmol/L (3.5-5.1); Sodium 133 mmol/L (136-145)
[2018-07-03 08:09] LABS: Absolute Eosinophil Count 0.33 k/cumm (0.0-0.7); Absolute Lymphocyte Count 3.78 k/cumm (1.2-3.4); Absolute Monocyte Count 0.89 k/cumm (0.11-0.7); Absolute Neutrophil Count 5.67 k/cumm (1.2-6.7); Diff Comment Manual Differential; RBC Morphology Normal
[2018-07-03 08:20] VITALS: BP 134/84; PULSE 87; RESP 16; TEMP 36.8; O2SAT 97
[2018-07-03] MEDS: amLODIPine 10 MG TAB PO (08:31)
[2018-07-03] MEDS: Losartan 50 MG TAB 100 MG PO (08:31)
[2018-07-03] MEDS: Chlorthalidone 25 MG TAB PO (08:32)
[2018-07-03] MEDS: Cephalexin 500 MG CAP PO (08:32)
[2018-07-03] MEDS: Sulfameth/Trimeth DS TAB 2 TAB PO (08:32)
[2018-07-03] MEDS: Normal Saline Flush 10 ML SYR IVP ×2 (08:33→20:04)
[2018-07-03] MEDS: Normal Saline 1,000 ML 100 ML IV (10:00)
--- NOTE | 2018-07-03 10:47 | PGE_ITS ---
Date of Service Date of service: 07/03/18 Time of Service: 10:58 Assessment and Plan (1) Facial cellulitis: Start date: 07/03/18 Start time: 10:45 Current visit: Yes Status: Acute Pt was transitioned to PO antibiotics yesterday. Failed po trial by labs, WBC increased from 9.38 to 11 while on PO. IV antibiotics will be resumed, vancomycin and merapenam. No growth by blood cultures after 72 hours. Swelling has decreased significantly. Ears are still slightly swollen to top of auricle bilaterally. Skin is peeling and patient endorses severe itching to previous swollen areas. Atarax ordered for itching. continue to monitor. (2) Diabetes mellitus: Start date: 07/03/18 Start time: 10:53 Current visit: Yes Status: Chronic SSI with carb control diet. BGL was 147 by am labs. Continue to monitor. (3) Dehydration: Start date: 07/03/18 Start time: 10:53 Current visit: Yes Status: Acute Sodium low by labs, infuse 500 saline over 500 hours and recheck labs in am. (4) Hypertension: Start date: 07/03/18 Start time: 10:54 Current visit: Yes Status: Chronic blood pressure improved on increased dose of amlodipine. Continue to monitor and tirate as needed. Will need to follow up with pcp for further evaluation and treatment of blood pressure (5) Hypokalemia: Start date: 07/03/18 Start time: 10:57 Current visit: Yes Status: Acute Resolved. continue to monitor, pt is currently taking a diuretic (6) Itching with irritation: Start date: 07/03/18 Start time: 10:58 Current visit: Yes Status: Acute seen above. Started on atarax. (7) DVT prophylaxis: Start date: 07/03/18 Start time: 10:57 Current visit: Yes Status: Acute Subcutaneous lovenox. (8) Discharge planning issues: Start date: 07/03/18 Start time: 10:57 Current visit: Yes Status: Acute He is a FULL CODE. Subjective Patient reports: other Interval history since last seen: Pt failed PO trial of antibiotic shown by an increased WBC this am of 9 to 11, blood cultures are no growth up to date at this time, IV antibiotics were restarted vanco and merapenem. He is complaining of severe itching to the face, he has tried scrubbing the slothing skin off acqu ainting that to the itching. Atarax was ordered QID for itching. His sodium was 133 this am. Normal saline 500 ml was ordered over 5 hours and will continue to monitor sodium level. Blood pressure improved with increase amlodpine, continue to monitor. After having the conversation of restarting IV antibiotics patient showed concern for family. Worried about , kids and work. Asked patient if anyone he wanted to talk to and he said no, encouraged ambulating and getting out of his room. He feels as though his symptoms have much improved but understands why he has to stay. He does say he has not slept, the atarax should help with this as well. He denies CP, SOB, n/v/d. Exam Const General: cooperative, comfortable and no acute distress HENMT Ears: external ears abnormal (swelling with erythema) Chest Chest: normal inspection of the chest Resp Effort & Inspection: normal respiratory effort and able to speak in complete sentences Auscultation: clear to auscultation bilaterally Cardio Jugular venous pressure: no JVD Palpation: normal PMI Rate: regular rate Rhythm: regular rhythm Heart Sounds: S1 normal and S2 normal GI Inspection: normal to inspection Palpation: soft Auscultation: normal bowel sounds Skin General skin exam: no rashes or lesions noted Neuro General: alert, awake and oriented x3 Extrem General: normal to inspection Objective Objective Clinical Data: Abnormal lab results 07/03/18 07/03/18 Range/Units 06:24 06:24 WBC 11.11 H (4.4-10.8) k/cumm MCHC 36.1 H (32.0-36.0) g/dL Plt Count 485 H (130-400) x1000/uL Absolute Lymphocytes 3.78 H (1.2-3.4) k/cumm Absolute Monocytes 0.89 H (0.11-0.7) k/cumm Sodium 133 L (136-145) mmol/L Chloride 94 L (98-107) mmol/L Anion Gap 13.2 H (3-11) mmol/L Glucose 147 H (70-100) mg/dL C-Reactive Protein 4.72 H (0.0-0.3) mg/dL Vital Signs Temperature 36.8 C 07/03/18 08:20 Temperature Source Tympanic 07/03/18 08:20 Pulse 87 07/03/18 08:20 Pulse Rhythm Regular 07/03/18 07:30 Pulse 87 06/29/18 15:01 Respiratory Rate 16 07/03/18 08:20 Respiratory Effort Non-Labored 07/03/18 07:30 Respiratory Depth Normal 07/03/18 07:30 Respiratory Pattern Normal 07/03/18 07:30 Blood Pressure 134/84 07/03/18 08:20 Blood Pressure Mean 111 06/29/18 14:00 Blood Pressure Position Sitting 06/29/18 09:48 Pulse Oximetry 97 07/03/18 08:20 Oxygen Delivery Method Room Air 07/03/18 08:20 Oxygen Flow Rate 0 07/03/18 08:20 Pain Level 0 07/03/18 08:20 Comment 07/02/18 13:15 Intake & Output 07/02/18 07/02/18 07/03/18 11:59 23:59 11:59 Intake Total 2070 / 3240 1170 / 3240 200 / 200 Output Total 800 / 4750 3650 / 4750 1250 / 1250 Balance 1270 / -1510 -2480 / -1510 -1050 / -1050 Weight 99.5 kg 95.8 kg Intake: IV 470 / 470 Oral 1600 / 2770 1170 / 2770 200 / 200 Output: Urine 800 / 4750 3650 / 4750 1250 / 1250 Other: Urine Color Yellow Yellow Yellow Urine Appearance Clear Clear Clear Urine Odor Normal Normal Comment Hat replaced in toilet. This nurse educated on the purpose and importance of monitoring I&O. 200CC FOUND IN HAT IN BR. CLEAR, DARK YELLOW URINE. Voiding Methods Toilet Toilet Toilet Laboratory Results WBC 11.11 k/cumm (4.4-10.8) H 07/03/18 06:24 RBC 5.29 m/cumm (4.50-6.00) 07/03/18 06:24 Hgb 16.4 g/dL (13.5-17.5) D 07/03/18 06:24 Hct 45.4 % (40.0-50.0) 07/03/18 06:24 MCV 85.8 fL (80-95) 07/03/18 06:24 MCH 31.0 pg (27.0-33.0) 07/03/18 06:24 MCHC 36.1 g/dL (32.0-36.0) H 07/03/18 06:24 RDW 12.0 % (11.8-14.1) 07/03/18 06:24 Plt Count 485 x1000/uL (130-400) H 07/03/18 06:24 MPV 9.6 fL (8.0-11.0) 07/03/18 06:24 Immature Gran % See Differential 07/03/18 06:24 Neutrophils % 51.0 07/03/18 06:24 Lymphocytes % 34.0 07/03/18 06:24 Monocytes % 8.0 07/03/18 06:24 Eosinophils % 3.0 07/03/18 06:24 Basophils % 0.0 07/03/18 06:24 Metamyelocytes % 4.0 % 07/03/18 06:24 Absolute Neutrophils 5.67 k/cumm (1.2-6.7) 07/03/18 06:24 Absolute Lymphocytes 3.78 k/cumm (1.2-3.4) H 07/03/18 06:24 Absolute Monocytes 0.89 k/cumm (0.11-0.7) H 07/03/18 06:24 Absolute Eosinophils 0.33 k/cumm (0.0-0.7) 07/03/18 06:24 Absolute Basophils 0.00 k/cumm (0.0-0.2) 07/03/18 06:24 Differential Comment Manual differential 07/03/18 06:24 RBC Morphology Normal 07/03/18 06:24 Xanthochromia Absent 06/29/18 12:20 ESR 92 MM/HR (0-15) H 06/29/18 09:57 Sodium 133 mmol/L (136-145) L 07/03/18 06:24 Potassium 4.2 mmol/L (3.5-5.1) 07/03/18 06:24 Chloride 94 mmol/L (98-107) L 07/03/18 06:24 Carbon Dioxide 25.8 mmol/L (21.0-32.0) 07/03/18 06:24 Anion Gap 13.2 mmol/L (3-11) H 07/03/18 06:24 BUN 13 mg/dL (7-18) 07/03/18 06:24 Creatinine 1.08 mg/dL (0.70-1.30) 07/03/18 06:24 Estimated GFR/1.73 m2 >= 60.00 (mL/min/1.73m2) 07/03/18 06:24 Glucose 147 mg/dL (70-100) H 07/03/18 06:24 Hemoglobin A1c 8.3 % (4.5-6.2) H 06/30/18 06:46 Lactate 1.1 mmol/L (0.6-1.4) 06/29/18 09:57 Calcium 9.7 mg/dL (8.5-10.1) 07/03/18 06:24 Magnesium 2.2 mg/dL (1.8-2.4) 07/02/18 06:36 Total Bilirubin 1.5 mg/dL (0.2-1.0) H 06/29/18 09:57 AST 35 U/L (15-37) 06/29/18 09:57 ALT 69 U/L (12-78) 06/29/18 09:57 Alkaline Phosphatase 65 U/L (46-116) 06/29/18 09:57 Troponin I < 0.02 ng/mL (0.00-0.06) 06/29/18 09:57 C-Reactive Protein 4.72 mg/dL (0.0-0.3) H 07/03/18 06:24 Total Protein 9.3 g/dL (6.4-8.2) H 06/29/18 09:57 Albumin 3.4 g/dL (3.4-5.0) 06/29/18 09:57 Urine Color [place] (Yellow) 06/29/18 09:53 Urine Clarity Clear 06/29/18 09:53 Urine pH 6.0 (5-8) 06/29/18 09:53 Ur Specific [place] 1.025 (1.005-1.025) 06/29/18 09:53 Urine Protein >=300 mg/dL (Negative) H 06/29/18 09:53 Urine Ketones 40 mg/dL (Negative) H 06/29/18 09:53 Urine Blood Trace-lysed (Negative) H 06/29/18 09:53 Urine Nitrite Negative (Negative) 06/29/18 09:53 Urine Bilirubin Small (Negative) H 06/29/18 09:53 Urine Urobilinogen 2.0 EU/dL (Up TO 0.2) H 06/29/18 09:53 Ur Leukocyte Esterase Negative (Negative) 06/29/18 09:53 Urine RBC Negative (0-2) 06/29/18 09:53 Urine WBC 3-5 HPF (0-5) 06/29/18 09:53 Ur Epithelial Cells Negative HPF (Negative) 06/29/18 09:53 Urine Crystals Few amorphous HPF (Negative) 06/29/18 09:53 Urine Bacteria Moderate HPF (Negative) 06/29/18 09:53 Urine Casts 5-10 hyaline LPF (Negative) 06/29/18 09:53 Urine Mucus Moderate (Negative) 06/29/18 09:53 Urine Other Few renal (Negative) 06/29/18 09:53 Ur Culture Indicated? No 06/29/18 09:53 Urine Glucose Negative mg/dL (Negative) 06/29/18 09:53 CSF Tube Number 2 06/29/18 12:20 CSF Color Colorless 06/29/18 12:20 CSF Clarity Clear 06/29/18 12:20 CSF WBC 5 /mm3 (0-5) 06/29/18 12:20 CSF RBC 34 /mm3 (0-5) H 06/29/18 12:20 CSF RBC (1) 167 /mm3 (0-5) H 06/29/18 12:20 CSF Diff Comment 06/29/18 12:20 CSF Glucose 91 mg/dL (40-70) H 06/29/18 12:20 CSF Total Protein 94 mg/dL (15-45) H 06/29/18 12:20 Path Cons Comment See comment 06/29/18 12:20
[2018-07-03 11:00] VITALS: BP 144/98; PULSE 98; RESP 16; TEMP 36.7; O2SAT 98
[2018-07-03] MEDS: MEROPENEM 1 GM in Normal Saline 100 ML IVPB ×2 (11:36→18:33)
[2018-07-03] MEDS: hydrOXYzine HCL 25 MG TAB PO ×2 (11:36→18:47)
[2018-07-03] MEDS: Insulin Aspart 300 UNITS/3 ML PEN SC (12:24)
--- NOTE | 2018-07-03 13:36 | PDOC.CMPRO ---
- If Service Date Differs Date of service: 07/03/18 Time of Service: 13:37 Care Management Progress Note S/O:Ari remains acute today he has returned to IV antibiotics after poor response to oral antibiotics. Anticipate he may need a prolonged course of antibiotics based on his response to oral. He appears to be coping well with support. A:Ari is a very pleasant 47 year old gentleman admitted with facial cellulitis. P:Ari transition to oral antibiotics for facial cellulitis today. Anticipate he will return home without services unless he requires home or outpatient antibiotic therapy. CM will continue to provide support to patient, family, care team and discharge planning.
[2018-07-03 15:10] VITALS: BP 116/82; PULSE 98; RESP 18; TEMP 36.8; O2SAT 100
[2018-07-03] MEDS: Enoxaparin 40 MG/0.4 ML SYR SC (15:36)
[2018-07-03] MEDS: Melatonin 3 MG TAB PO (21:07)
[2018-07-03 21:40] VITALS: BP 124/87; PULSE 98; RESP 20; TEMP 36.9; O2SAT 96
[2018-07-04 00:14] VITALS: BP 132/94; PULSE 82; RESP 18; TEMP 36.8; O2SAT 95
[2018-07-04] MEDS: MEROPENEM 1 GM in Normal Saline 100 ML IVPB ×3 (01:53→17:29)
[2018-07-04] MEDS: Normal Saline Flush 10 ML SYR IVP ×3 (01:54→20:23)
[2018-07-04 07:23] LABS: HCT 45.1 % (40.0-50.0); HGB 15.7 g/dL (13.5-17.5); Mean Corp. HGB Concentration 34.8 g/dL (32.0-36.0); Mean Corpuscular Hemoglobin 30.4 pg (27.0-33.0); Mean Corpuscular Volume 87.4 fL (80-95); Mean Platelet Volume 9.4 fL (8.0-11.0); Platelet Count 436 x1000/uL (130-400); RBC 5.16 m/cumm (4.50-6.00); RBC Distribution Width 12.3 % (11.8-14.1); White Blood Cell Count 10.02 k/cumm (4.4-10.8)
[2018-07-04 07:30] LABS: Anion Gap 8.7 mmol/L (3-11); BUN 15 mg/dL (7-18); CO2 27.3 mmol/L (21.0-32.0); CREATININE 1.09 mg/dL (0.70-1.30); Calcium 9.1 mg/dL (8.5-10.1); Chloride 98 mmol/L (98-107); Glucose 152 mg/dL (70-100); Magnesium 2.2 mg/dL (1.8-2.4); Potassium 4.4 mmol/L (3.5-5.1); Sodium 134 mmol/L (136-145)
[2018-07-04 08:00] VITALS: BP 108/78; PULSE 89; RESP 15; TEMP 36.4; O2SAT 97
[2018-07-04] MEDS: Chlorthalidone 25 MG TAB PO (08:09)
[2018-07-04] MEDS: Losartan 50 MG TAB 100 MG PO (08:10)
[2018-07-04] MEDS: amLODIPine 10 MG TAB PO (08:11)
[2018-07-04 08:30] LABS: Absolute Lymphocyte Count 3.11 k/cumm (1.2-3.4); Absolute Neutrophil Count 5.81 k/cumm (1.2-6.7); Atypical Lymphocytes % 2
[2018-07-04 08:31] LABS: Diff Comment Manual Differential; RBC Morphology Normal
[2018-07-04] MEDS: Insulin Aspart 300 UNITS/3 ML PEN SC ×3 (08:51→17:27)
--- NOTE | 2018-07-04 10:36 | W.PM.PROGNOT ---
Date of Service Date of service: 07/04/18 Time of Service: 10:38 Assessment and Plan (1) Facial cellulitis: Start date: 07/04/18 Start time: 10:38 Current visit: Yes Status: Acute Day 6 of merapenem and vancomycin, Markedly improved, afebrile. Pt feels great .WBC 10.02. Right ear with no swelling, slight erythemic, left ear slight swelling to top with slight erythema. Blood cultures with no growth after 96 hours. Possible dc tomorrow or day after. (2) Diabetes mellitus: Start date: 07/04/18 Start time: 10:41 Current visit: Yes Status: Chronic SSI with carb control diet. BGL 152 by labs, continue to monitor. (3) Dehydration: Start date: 07/04/18 Start time: 10:42 Current visit: Yes Status: Acute resolved, encourage PO intake, and continue to monitor hydration status (4) Hypertension: Start date: 07/04/18 Start time: 10:42 Current visit: Yes Status: Chronic Pt started on hydroxizine and stated that was the best he has felt in a while. he does endorse a high state of anxiety daily that could be raising his blood pressure, after having hydroxizine his blood pressure has decreased to as low as 108/78 given the anti-anxiety properties dose was upped to QID with monitoring blood pressure. his amlodipine was also started (5) Hypokalemia: Start date: 07/04/18 Start time: 10:47 Current visit: Yes Status: Acute Resolved. continue to monitor, pt is currently taking a diuretic (6) Itching with irritation: Start date: 07/04/18 Start time: 10:49 Current visit: Yes Status: Acute seen above. Started on hydroxizine, patient does itch scalp when anxious, high anxious state everyday, has poor stress management techniques, itches when anxious and smokes pot on a walk when highly stressed. Feels as though the hydroxizine has helped his anxiety, decreasing his itching. Will schedule BID with BID prn. (7) DVT prophylaxis: Start date: 07/04/18 Start time: 10:50 Current visit: Yes Status: Acute Subcutaneous lovenox. (8) Discharge planning issues: Start date: 07/04/18 Start time: 10:50 Current visit: Yes Status: Acute He is a FULL CODE. Subjective Patient reports: other Interval history since last seen: Mr. Bernal is doing well today. He states he feel great not anxious or mellow for the first time in a long time. He did receive hydroxizine for itching yesterday, after more in depth conversation, patient reveals he has a tendency to scratch at this head and face when feeling stressed and he has a high stress anxiety level everyday. He felt as though the hydroxizine helped mellow him out and relax him. It was increased to BID schedule with BID prn schedule. His blood pressure has normalized after having hydroxizine attributing his HTN to stress and anxiety. We discussed stress relieve techniques and management. He uses smoking pot while taking a walk for stress relief. Encouraged better techniques. Day 6 of vancomycin and merapenam. Blood cultures with no growth at this time. Swelling has minimized to left top of ear, right ear without swelling and minimal redness. Exam Const General: cooperative, comfortable and no acute distress HENMT Ears: external ears abnormal (swelling with erythema) Other: right war with no swelling, left ear with slight swelling at top of ear. Chest Chest: normal inspection of the chest Resp Effort & Inspection: normal respiratory effort and able to speak in complete sentences Auscultation: clear to auscultation bilaterally Cardio Jugular venous pressure: no JVD Palpation: normal PMI Rate: regular rate Rhythm: regular rhythm Heart Sounds: S1 normal and S2 normal GI Inspection: normal to inspection Palpation: soft Auscultation: normal bowel sounds Skin General skin exam: no rashes or lesions noted Neuro General: alert, awake and oriented x3 Extrem General: normal to inspection Objective Objective Clinical Data: Abnormal lab results 07/04/18 07/04/18 Range/Units 06:20 06:20 Plt Count 436 H (130-400) x1000/uL Absolute Monocytes 0.80 H (0.11-0.7) k/cumm Sodium 134 L (136-145) mmol/L Glucose 152 H (70-100) mg/dL Vital Signs Temperature 36.4 C L 07/04/18 08:00 Temperature Source Tympanic 07/04/18 08:00 Pulse 89 07/04/18 08:00 Pulse Rhythm Regular 07/03/18 21:50 Pulse 87 06/29/18 15:01 Respiratory Rate 15 07/04/18 08:00 Respiratory Effort 07/04/18 08:57 Respiratory Depth Normal 07/04/18 08:57 Respiratory Pattern Normal 07/04/18 08:57 Blood Pressure 108/78 07/04/18 08:00 Blood Pressure Mean 111 06/29/18 14:00 Blood Pressure Position Sitting 06/29/18 09:48 Pulse Oximetry 97 07/04/18 08:00 Oxygen Delivery Method Room Air 07/04/18 08:00 Oxygen Flow Rate 0 07/04/18 08:00 Pain Level 0 07/04/18 08:00 Comment 07/03/18 11:00 Intake & Output 07/03/18 07/03/18 07/04/18 11:59 23:59 11:59 Intake Total 210 / 3180 2970 / 3180 640 / 640 Output Total 1450 / 1950 500 / 1950 650 / 650 Balance -1240 / 1230 2470 / 1230 -10 / -10 Weight 95.8 kg 96.5 kg Intake: IV 10 / 2260 2250 / 2260 100 / 100 Oral 200 / 920 720 / 920 540 / 540 Output: Urine 1450 / 1950 500 / 1950 650 / 650 Other: Urine Color Straw Pale Straw Yellow Urine Appearance Clear Clear Clear Urine Odor Normal Voiding Methods Toilet Toilet Toilet Laboratory Results WBC 10.02 k/cumm (4.4-10.8) 07/04/18 06:20 RBC 5.16 m/cumm (4.50-6.00) 07/04/18 06:20 Hgb 15.7 g/dL (13.5-17.5) 07/04/18 06:20 Hct 45.1 % (40.0-50.0) 07/04/18 06:20 MCV 87.4 fL (80-95) 07/04/18 06:20 MCH 30.4 pg (27.0-33.0) 07/04/18 06:20 MCHC 34.8 g/dL (32.0-36.0) 07/04/18 06:20 RDW 12.3 % (11.8-14.1) 07/04/18 06:20 Plt Count 436 x1000/uL (130-400) H 07/04/18 06:20 MPV 9.4 fL (8.0-11.0) 07/04/18 06:20 Immature Gran % See Differential 07/04/18 06:20 Neutrophils % 52.0 07/04/18 06:20 Band Neutrophils % 6.0 % 07/04/18 06:20 Lymphocytes % 29.0 07/04/18 06:20 Atypical Lymphs % 2 07/04/18 06:20 Monocytes % 8.0 07/04/18 06:20 Eosinophils % 0.0 07/04/18 06:20 Basophils % 0.0 07/04/18 06:20 Metamyelocytes % 3.0 % 07/04/18 06:20 Absolute Neutrophils 5.81 k/cumm (1.2-6.7) 07/04/18 06:20 Absolute Lymphocytes 3.11 k/cumm (1.2-3.4) 07/04/18 06:20 Absolute Monocytes 0.80 k/cumm (0.11-0.7) H 07/04/18 06:20 Absolute Eosinophils 0.00 k/cumm (0.0-0.7) 07/04/18 06:20 Absolute Basophils 0.00 k/cumm (0.0-0.2) 07/04/18 06:20 Differential Comment Manual differential 07/04/18 06:20 RBC Morphology Normal 07/04/18 06:20 Xanthochromia Absent 06/29/18 12:20 ESR 92 MM/HR (0-15) H 06/29/18 09:57 Sodium 134 mmol/L (136-145) L 07/04/18 06:20 Potassium 4.4 mmol/L (3.5-5.1) 07/04/18 06:20 Chloride 98 mmol/L (98-107) 07/04/18 06:20 Carbon Dioxide 27.3 mmol/L (21.0-32.0) 07/04/18 06:20 Anion Gap 8.7 mmol/L (3-11) 07/04/18 06:20 BUN 15 mg/dL (7-18) 07/04/18 06:20 Creatinine 1.09 mg/dL (0.70-1.30) 07/04/18 06:20 Estimated GFR/1.73 m2 >= 60.00 (mL/min/1.73m2) 07/04/18 06:20 Glucose 152 mg/dL (70-100) H 07/04/18 06:20 Hemoglobin A1c 8.3 % (4.5-6.2) H 06/30/18 06:46 Lactate 1.1 mmol/L (0.6-1.4) 06/29/18 09:57 Calcium 9.1 mg/dL (8.5-10.1) 07/04/18 06:20 Magnesium 2.2 mg/dL (1.8-2.4) 07/04/18 06:20 Total Bilirubin 1.5 mg/dL (0.2-1.0) H 06/29/18 09:57 AST 35 U/L (15-37) 06/29/18 09:57 ALT 69 U/L (12-78) 06/29/18 09:57 Alkaline Phosphatase 65 U/L (46-116) 06/29/18 09:57 Troponin I < 0.02 ng/mL (0.00-0.06) 06/29/18 09:57 C-Reactive Protein 4.72 mg/dL (0.0-0.3) H 07/03/18 06:24 Total Protein 9.3 g/dL (6.4-8.2) H 06/29/18 09:57 Albumin 3.4 g/dL (3.4-5.0) 06/29/18 09:57 Urine Color [place] (Yellow) 06/29/18 09:53 Urine Clarity Clear 06/29/18 09:53 Urine pH 6.0 (5-8) 06/29/18 09:53 Ur Specific [place] 1.025 (1.005-1.025) 06/29/18 09:53 Urine Protein >=300 mg/dL (Negative) H 06/29/18 09:53 Urine Ketones 40 mg/dL (Negative) H 06/29/18 09:53 Urine Blood Trace-lysed (Negative) H 06/29/18 09:53 Urine Nitrite Negative (Negative) 06/29/18 09:53 Urine Bilirubin Small (Negative) H 06/29/18 09:53 Urine Urobilinogen 2.0 EU/dL (Up TO 0.2) H 06/29/18 09:53 Ur Leukocyte Esterase Negative (Negative) 06/29/18 09:53 Urine RBC Negative (0-2) 06/29/18 09:53 Urine WBC 3-5 HPF (0-5) 06/29/18 09:53 Ur Epithelial Cells Negative HPF (Negative) 06/29/18 09:53 Urine Crystals Few amorphous HPF (Negative) 06/29/18 09:53 Urine Bacteria Moderate HPF (Negative) 06/29/18 09:53 Urine Casts 5-10 hyaline LPF (Negative) 06/29/18 09:53 Urine Mucus Moderate (Negative) 06/29/18 09:53 Urine Other Few renal (Negative) 06/29/18 09:53 Ur Culture Indicated? No 06/29/18 09:53 Urine Glucose Negative mg/dL (Negative) 06/29/18 09:53 CSF Tube Number 2 06/29/18 12:20 CSF Color Colorless 06/29/18 12:20 CSF Clarity Clear 06/29/18 12:20 CSF WBC 5 /mm3 (0-5) 06/29/18 12:20 CSF RBC 34 /mm3 (0-5) H 06/29/18 12:20 CSF RBC (1) 167 /mm3 (0-5) H 06/29/18 12:20 CSF Diff Comment 06/29/18 12:20 CSF Glucose 91 mg/dL (40-70) H 06/29/18 12:20 CSF Total Protein 94 mg/dL (15-45) H 06/29/18 12:20 Path Cons Comment See comment 06/29/18 12:20
[2018-07-04 11:27] LABS: Vancomycin, Trough 15.8 ug/mL (10.0-20.0)
--- NOTE | 2018-07-04 15:05 | CHAPLAIN ---
Ari said he has been feeling better since Wednesday and the feeling is his better, but is frustrated being confined to his room. Over the weekend he had family into visit. We talked about this experience being a test of his patience. Because of his IV, he must be with medical staff to go outside and sit, and that happened over the weekend, he said.
--- NOTE | 2018-07-04 15:21 | CMPROGNOTE_ITS ---
- If Service Date Differs Date of service: 07/04/18 Time of Service: 10:29 Care Management Progress Note Care Management Progress Note S/O:Ari remains acute level of care and continues to receive IV antibiotics. He expresses disappointment that he failed oral therapy and was unable to go home for [facility]. He is also concerned because he and his family had planned a week's vacation in August which he will not be able to enjoy because his paid time off was needed for this hospitalization and he will not have enough left in August. Ari also stated that he wished he were able to go outside and enjoy some sunshine and fresh air. A:Ari is a very pleasant 47 year old gentleman admitted with facial cellulitis. P:Ari is again receiving IV antibiotics. Since he failed oral therapy he must complete a 7 day course of IV medication. He will be discharged home with no services when ready. CM will continue to provide support to patient, family, care team and discharge planning.
[2018-07-04 15:39] VITALS: BP 118/93; PULSE 88; RESP 18; TEMP 36.4; O2SAT 93
[2018-07-04] MEDS: Enoxaparin 40 MG/0.4 ML SYR SC (15:47)
[2018-07-04] MEDS: hydrOXYzine HCL 25 MG TAB PO (20:22)
[2018-07-04] MEDS: Melatonin 3 MG TAB PO (21:23)
[2018-07-05 00:34] VITALS: BP 129/92; PULSE 76; RESP 16; TEMP 36.7; O2SAT 97
[2018-07-05] MEDS: Normal Saline Flush 10 ML SYR IVP ×2 (01:37→03:50)
[2018-07-05] MEDS: MEROPENEM 1 GM in Normal Saline 100 ML IVPB ×2 (01:37→10:09)
[2018-07-05 07:51] LABS: Abs Immature Grans 0.44 k/cumm (0.0-0.09); HCT 45.6 % (40.0-50.0); Mean Corp. HGB Concentration 35.1 g/dL (32.0-36.0); Mean Corpuscular Hemoglobin 30.6 pg (27.0-33.0); Mean Corpuscular Volume 87.2 fL (80-95); Mean Platelet Volume 9.3 fL (8.0-11.0); RBC 5.23 m/cumm (4.50-6.00); RBC Distribution Width 12.2 % (11.8-14.1); White Blood Cell Count 9.95 k/cumm (4.4-10.8)
[2018-07-05 07:55] LABS: Anion Gap 9.5 mmol/L (3-11); BUN 14 mg/dL (7-18); CO2 27.5 mmol/L (21.0-32.0); CREATININE 1.01 mg/dL (0.70-1.30); Calcium 9.5 mg/dL (8.5-10.1); Chloride 98 mmol/L (98-107); Glucose 144 mg/dL (70-100); Magnesium 2.1 mg/dL (1.8-2.4); Potassium 4.2 mmol/L (3.5-5.1); Sodium 135 mmol/L (136-145)
[2018-07-05 08:04] VITALS: BP 134/100; PULSE 82; RESP 16; TEMP 36.6; O2SAT 97
[2018-07-05] MEDS: amLODIPine 10 MG TAB PO (08:05)
[2018-07-05] MEDS: Chlorthalidone 25 MG TAB PO (08:06)
[2018-07-05] MEDS: Losartan 50 MG TAB 100 MG PO (08:06)
[2018-07-05] MEDS: hydrOXYzine HCL 25 MG TAB PO (08:06)
--- NOTE | 2018-07-05 08:14 | PDOC.CMPRO ---
- If Service Date Differs Date of service: 07/05/18 Time of Service: 08:14 Care Management Progress Note S/O:Ari was sitting up in bed, smiling broadly, stating that he is being discharged today. He is excited about going home and being with his boys again.The erythema and edema of his face and ears is significantly reduced and he feels much better. A:Ari is a very pleasant 47 year old gentleman admitted with facial cellulitis. P:Ari is again receiving IV antibiotics. Since he failed oral therapy he must complete a 7 day course of IV medication. He will be discharged home with no services when ready. CM will continue to provide support to patient, family, care team and discharge planning.
[2018-07-05 08:22] LABS: Absolute Lymphocyte Count 3.68 k/cumm (1.2-3.4); Absolute Neutrophil Count 4.78 k/cumm (1.2-6.7); Atypical Lymphocytes % 4; Platelet Count 456 x1000/uL (130-400)
[2018-07-05 08:23] LABS: Diff Comment Manual Differential; RBC Morphology Normal
[2018-07-05 10:50] VITALS: BP 120/96
[2018-07-05] MEDS: Insulin Aspart 300 UNITS/3 ML PEN SC (12:02)
--- NOTE | 2018-07-05 13:01 | W.PM.DS.N ---
Date of service: 07/05/18 Time of Service: 13:02 DS: Diagnosis Discharge Diagnosis (1) Facial cellulitis: Status: Acute (2) Diabetes mellitus: Status: Chronic (3) Dehydration: Status: Acute (4) Hypertension: Status: Chronic (5) Hypokalemia: Status: Acute (6) Itching with irritation: Status: Acute Discharge Plan Disposition Patient Disposition: HOME Condition: Improving Discharge Details Reason For Visit: FACIAL CELLULITIS Admit Date/Time: 06/29/18 14:32 Admit Provider: Beau Leonardo Attending Provider: Beau Leonardo Primary Care Provider: Margarita Boswell V Hospital Course Hospital Course: Ari Bernal is a very pleasant 47-year-old male with a past medical history significant for hypertension diabetes who presented to his primary care office on 06/29/18 and was directed to the emergency department. At the time of his presentation, he reported that he had a recent upper respiratory infection with a cough, congestion and sinus pressure that was resolving about a week prior to his presentation. He reported that as the upper respiratory infection was improving, he began to notice that his neck appeared red and swollen and he felt feverish. Over the following days, the redness spread up over his ears and over his forehead. At the time of presentation to the emergency department today, he was febrile to 39.4, tachycardic, hypertensive, and reported a headache as well as mild neck pain that was improving. His labs were notable for hyponatremia with a sodium of 129, potassium low at 3.0, chloride low at 87, elevated anion gap at 12.7. His CRP was 22.83, sed rate was 92, he had leukocytosis with white blood cell count of 17.35. His lactate was normal at 1.1. He had a CT head and facial bones which showed mild inflammatory changes involving the left maxillary, ethmoid and left frontal sinus, findings consistent with facial cellulitis, no discrete soft tissue mass or fluid collection. He had an LP in the ED that was not suspicious for meningitis. He was started on Vancomycin and Meropenem and admitted to the med/surg floor for IV antibiotics. The edema and erythema subsided over the following days. He was initially transitioned to oral antibiotics with Keflex and bactrim. The following day, he had an increase in his white blood cell count and it was decided to place him back on IV antibiotics. At the time of discharge, he is no longer experiencing a headache, he has remained afebrile, his white blood cell count has normalized, his blood cultures yielded no growth at 120 hours, the erythema and edema on his face and around his eyes has resolved. He continues to have mild erythema around his ears and posterior neck. His eye lids are dry. He feels better and is eager for discharge home. He will be discharged home on 3 more days of Doxycycline and Keflex. He will follow up with his PCP office in 3 days for evaluation. Mr. Bernal has a history of hypertension. He was hypertensive on his usual home regimen. His amlodipine was increased to 10 mg/day. He also endorsed anxiety as well as pruritus. He was started on Hydroxyzine with improvement in his anxiety, itching and blood pressure. He will be discharged home on the increased dose of amlodipine as well as hydroxyzine. He also has a history of diabetes. His Hgb A1c was 8.3. His blood sugars were well controlled while he was hospitalized on glipizide and sliding scale insulin while on a carb counting diet. He will go back on his usual regimen upon discharge and follow up with his PCP. He will follow up as scheduled with his PCP office in 3 days. He will return to work on 07/07/18 as tolerated. Home Meds and New Rx's Prescriptions: New amlodipine 10 mg Tablet 10 mg PO DAILY Qty: 30 RF: 0 hydroxyzine HCl 25 mg Tablet 25 mg PO Q6H PRN PRNQty: 30 RF: 0 cephalexin [Keflex] 500 mg capsule 500 mg PO QID Qty: 12 RF: 0 doxycycline hyclate 100 mg capsule 100 mg PO BID Qty: 6 RF: 0 Continued glipizide 10 mg Tablet Extended Release 24hr 20 mg PO DAILY RF: 0 cyanocobalamin (vitamin B-12) [Vitamin B-12] 1,000 mcg Tablet 1,000 mcg PO DAILY RF: 0 chlorthalidone 25 mg Tablet 25 mg PO DAILY RF: 0 losartan 100 mg Tablet 100 mg PO DAILY RF: 0 metformin [Glucophage XR] 750 mg Tablet Extended Release 24 Hr 750 mg PO DAILY RF: 0 Discontinued amlodipine 2.5 mg Tablet 2.5 - 5 mg PO DAILY RF: 0 Discharge Instructions Instructions: Cellulitis (DC) Additional Instructions: Your amlodipine dose has been increased. Take Hydroxyzine as needed for anxiety and itching. Take antibiotics until they are gone (3 more days). Follow up with your PCP office as scheduled (this is the latest appointment available). You may return to work on 07/07 as tolerated. If you have a fever or notice the redness is returning, see your PCP or return to the ED. Monitor your blood sugar and maintain a low carb diet. Your Hgb A1c was 8.3. Take care! Stand Alone Forms: Nursing Discharge Form Referrals: Lokesh Cobb PA [NURSE PRACTITIONER] - 07/08/18 3:00 pm Activity:: Activity as Tolerated Equipment/Supplies:: No Equipment Needed Diet:: Carb Counting Discharge Orders Discharge Orders: Discharge Order (Routine); Ordered 07/05/18 Ordered By: Simona Banda Exam Narrative Exam Narrative: General: sitting up in bed, awake and alert, in no acute distress. HEENT: pupils equal and round and reactive to light, EOMI, no pain with eye movement. Mucous membranes moist, oropharynx clear skin: No edema or erythema of forehead. Skin dry with mild erythema over upper eye lids. Ears dry with mild erythema, no edema. Mild erythema across posterior neck. Healing lesion on left chest with surrounding erythema. Neck: supple, no lymphadenopathy. Cardiovascular: heart has regular rate and rhythm, no murmur. Respiratory: respirations even and unlabored, lung sound clear to auscultation throughout. Gastrointestinal: normoactive bowel sounds, soft, nontender on palpation, nondistended. Extremities: no clubbing, cyanosis or edema. DS: Data Vitals/I&O Vitals and I&O: Vital Signs Temperature 36.6 C 07/05/18 08:04 Temperature Source Tympanic 07/05/18 08:04 Pulse 82 07/05/18 08:04 Pulse Rhythm Regular 07/05/18 09:40 Pulse 87 06/29/18 15:01 Respiratory Rate 16 07/05/18 08:04 Respiratory Effort 07/05/18 09:40 Respiratory Depth Normal 07/05/18 09:40 Respiratory Pattern Normal 07/05/18 09:40 Blood Pressure 120/96 H 07/05/18 10:50 Blood Pressure Mean 111 06/29/18 14:00 Blood Pressure Position Sitting 06/29/18 09:48 Pulse Oximetry 97 07/05/18 08:04 Oxygen Delivery Method Room Air 07/05/18 08:04 Oxygen Flow Rate 0 07/05/18 08:04 Pain Level 0 07/05/18 08:04 Comment 07/03/18 11:00 Intake & Output 07/04/18 07/05/18 07/05/18 23:59 11:59 23:59 Intake Total 840 / 1830 1180 / 1180 Output Total 550 / 1970 2700 / 2700 Balance 290 / -140 -1520 / -1520 Weight 96.5 kg Intake: IV 600 / 1050 700 / 700 Oral 240 / 780 480 / 480 Output: Urine 550 / 1970 2700 / 2700 Other: Urine Color Yellow Yellow Urine Appearance Clear Clear Comment voiding independently in the bathroom Voiding Methods Toilet Completed studies during hospitalization [Text1]: 06/29/18: CRANIAL CT: The study was carried out with an intravenous injection of 100 cc of Omnipaque 350. There is no evidence of an intra/extra-axial hemorrhage, mass or fluid collection. The velazquez-white matter differentiation is well maintained. The ventricles are normal. No vascular abnormality is identified. There is no evidence of a skull fracture. Mild mucoperiosteal thickening is noted in the left maxillary antrum and in the ethmoid and left frontal sinus. There is no evidence of a mastoid effusion. SUMMARY: No acute intracranial abnormality is seen. There are mild inflammatory changes involving the left maxillary, ethmoid and left frontal sinus. FACIAL BONE CT: The study was carried out according to the usual protocol with intravenous administration of 100 cc of Omnipaque 350. No bony abnormality is seen. There is mucoperiosteal thickening involving the floor of the left maxillary antrum, and left ethmoid and left frontal air cell. The intraorbital contents appear intact. Increased density is noted in the subcutaneous soft tissues over the face consistent with the clinical finding of facial cellulitis. There is no discrete soft tissue mass or fluid collection. Labs on day of discharge: Labs from last 24 hours 07/05/18 07/05/18 06:52 06:52 WBC 9.95 RBC 5.23 Hgb 16.0 Hct 45.6 MCV 87.2 MCH 30.6 MCHC 35.1 RDW 12.2 Plt Count 456 H MPV 9.3 Immature Gran % See Differential Neutrophils % 48.0 Lymphocytes % 33.0 Atypical Lymphs % 4 Monocytes % 10.0 Eosinophils % 2.0 Basophils % 0.0 Metamyelocytes % 3.0 Myelocytes % 1.0 Absolute Neutrophils 4.78 Absolute Lymphocytes 3.68 H Absolute Monocytes 1.00 H Absolute Eosinophils 0.20 Absolute Basophils 0.00 Differential Comment Manual differential RBC Morphology Normal Sodium 135 L Potassium 4.2 Chloride 98 Carbon Dioxide 27.5 Anion Gap 9.5 BUN 14 Creatinine 1.01 Estimated GFR/1.73 m2 >= 60.00 Glucose 144 H Calcium 9.5 Magnesium 2.1 PFSH Medical History Hypertension (Chronic) Diabetes mellitus (Chronic) Family History Mother Ovarian cancer Father Heart disease Diabetes Sister Breast cancer Social History Smoking/Tobacco Use Status: Never Alcohol Intake: current Alcohol Intake frequency: holidays/special occasions only Details: rare etoh Drug use: Never current occupation: [employer] Program[employer], former [employer] Do you feel safe at home: Yes Do you feel safe in your relationship?: Yes
--- NOTE | 2018-07-05 15:17 | PDOC.CMDIS ---
- If Service Date Differs Date of service: 07/05/18 Time of Service: 15:17 LACE Index Scoring Tool - Questions: Length of Stay (in days): 4 - 6 Acuity (Admit via E.D.?): Yes Comorbidities: Diabetes w/o Complication E.D. Visits: 1 - Answers: Total Score: 9 Risk of Readmission: Low Risk Care Management Discharge Reason for Hospitalization: Facial cellulitis Discharge Plan: Ari has completed a 7 day course of IV antibiotics. He will be discharged home with no services today. He will follow up with his PCP later this week. Patient/Family Education Needs: Discharge plan, limitations, follow up plan of care and Ask Me Three.
== END 2018-07-05 15:30 | disposition home or self-care (01) | DRG 603 ==
LOC: ER 14:43 → MS 15:24
PROVIDERS: Nurse Practitioner; Nurse Practitioner Family; Admitting Provider Internal Medicine; Emergency Provider Student in an Organized Health Care Education/Training Program; PCP Family Medicine; Visit Provider Internal Medicine
DX: L03.211 Cellulitis of face (principal); S21.102A Unspecified open wound of left front wall of thorax without penetration into thoracic cavity, initial encounter; E87.1 Hypo-osmolality and hyponatremia; E86.0 Dehydration; R51 Headache; M54.2 Cervicalgia; L29.9 Pruritus, unspecified; S11.80XA Unspecified open wound of other specified part of neck, initial encounter; X58.XXXA Exposure to other specified factors, initial encounter; E11.9 Type 2 diabetes mellitus without complications; I10 Essential (primary) hypertension; E87.6 Hypokalemia; E87.8 Other disorders of electrolyte and fluid balance, not elsewhere classified; F41.9 Anxiety disorder, unspecified; R11.0 Nausea; Z71.3 Dietary counseling and surveillance; Z79.84 Long term (current) use of oral hypoglycemic drugs
CPT/HCPCS: 36415; 62270; 80048; 80053; 82945; 85652; 87040; 89050; 89051; 93005; 96361; 96365; 96366; 96368; 96375; 99222; 99232; 99233; 99239; 99285; J1650; 70460; 70487; 80202; 81003; 81015; 83036; 83605; 83735; 84157; 84484; 85025; 86140; 87070; 87205; 93010; J1885; J2270; J3370; J3480; J3490

== ENCOUNTER 2018-07-13 21:46 | Outpatient (REF) | payer BC, SELFPAY ==
[2018-07-13 20:58] LABS: Absolute Eosinophil Count 0.12 k/cumm (0.0-0.7); Absolute Lymphocyte Count 3.68 k/cumm (1.2-3.4); Absolute Monocyte Count 0.51 k/cumm (0.11-0.7); Absolute Neutrophil Count 2.68 k/cumm (1.2-6.7); Basophils % 1.4; Eosinophils % 1.7; HCT 39.8 % (40.0-50.0); HGB 14.1 g/dL (13.5-17.5); Lymphocytes % 51.9; Mean Corp. HGB Concentration 35.4 g/dL (32.0-36.0); Mean Corpuscular Hemoglobin 31.2 pg (27.0-33.0); Mean Corpuscular Volume 88.1 fL (80-95); Mean Platelet Volume 10.1 fL (8.0-11.0); Monocytes % 7.2; Neutrophils % 37.8; Platelet Count 350 x1000/uL (130-400); RBC 4.52 m/cumm (4.50-6.00); RBC Distribution Width 12.1 % (11.8-14.1); White Blood Cell Count 7.09 k/cumm (4.4-10.8)
[2018-07-13 21:25] LABS: Anion Gap 8.6 mmol/L (3-11); BUN 15 mg/dL (7-18); CO2 29.4 mmol/L (21.0-32.0); CREATININE 0.81 mg/dL (0.70-1.30); Calcium 9.2 mg/dL (8.5-10.1); Chloride 99 mmol/L (98-107); Glucose 215 mg/dL (70-100); Potassium 4.3 mmol/L (3.5-5.1); Sodium 137 mmol/L (136-145)
== END 2018-07-13 22:06 ==
LOC: NCHCN 21:46
PROVIDERS: PCP Family Medicine; Visit Provider Physician Assistant Medical
DX: E11.65 Type 2 diabetes mellitus with hyperglycemia (principal); I10 Essential (primary) hypertension
CPT/HCPCS: 80048; 85025

== ENCOUNTER 2019-05-18 10:12 | Outpatient (REF) | payer BC, SELFPAY ==
[2019-05-18 19:36] LABS: Hemoglobin A1C 11.8 % (3.8-5.6)
[2019-05-18 19:44] LABS: ALT 185 U/L (16-63); AST 83 U/L (15-37); Albumin 4.4 g/dL (3.4-5.0); Alkaline Phosphatase 36 U/L (46-116); Anion Gap 11.3 mmol/L (3-11); BUN 16 mg/dL (7-18); Bilirubin, Total 1.1 mg/dL (0.2-1.0); CO2 28.7 mmol/L (21.0-32.0); CREATININE 1.08 mg/dL (0.70-1.30); Calcium 9.2 mg/dL (8.5-10.1); Chloride 99 mmol/L (98-107); Glucose 174 mg/dL (74-106); Potassium 3.8 mmol/L (3.5-5.1); Sodium 139 mmol/L (136-145); Total Protein 7.7 g/dL (6.4-8.2)
[2019-05-18 20:06] LABS: Calculated LDL 151 mg/dL (<100); Cholesterol 209 mg/dL (<200); HDL Cholesterol 27 mg/dL (40-60); Triglyceride 159 mg/dL (<150)
[2019-05-22 11:19] LABS: PSA, Screening 0.6 ng/mL (0.0-3.5)
== END 2019-05-18 10:32 ==
LOC: NCHCN 10:12
PROVIDERS: PCP Family Medicine; Visit Provider Family Medicine
DX: Z00.00 Encounter for general adult medical examination without abnormal findings (principal); E11.65 Type 2 diabetes mellitus with hyperglycemia; I10 Essential (primary) hypertension; K76.0 Fatty (change of) liver, not elsewhere classified; Z12.5 Encounter for screening for malignant neoplasm of prostate
CPT/HCPCS: 80053; 80061; 84153; 83036

== ENCOUNTER 2020-04-19 19:48 | Outpatient (REF) | payer BC, SELFPAY ==
[2020-04-19 16:05] LABS: ALT 90 U/L (16-63); AST 31 U/L (15-37); Albumin 4.1 g/dL (3.4-5.0); Alkaline Phosphatase 44 U/L (46-116); Anion Gap 9.1 mmol/L (3-11); BUN 20 mg/dL (7-18); Bilirubin, Total 0.5 mg/dL (0.2-1.0); CO2 30.9 mmol/L (21.0-32.0); CREATININE 1.2 mg/dL (0.70-1.30); Calcium 9.4 mg/dL (8.5-10.1); Calculated LDL 120 mg/dL (<100); Chloride 97 mmol/L (98-107); Cholesterol 173 mg/dL (<200); Glucose 205 mg/dL (74-106); HDL Cholesterol 29 mg/dL (40-60); Potassium 4.4 mmol/L (3.5-5.1); Sodium 137 mmol/L (136-145); Total Protein 7.8 g/dL (6.4-8.2); Triglyceride 123 mg/dL (<150)
[2020-04-19 16:15] LABS: Hemoglobin A1C 9.4 % (<5.7)
== END 2020-04-19 19:49 | disposition home or self-care (01) ==
LOC: NCHCN 19:48
PROVIDERS: PCP Family Medicine; Visit Provider Family Medicine
DX: E11.65 Type 2 diabetes mellitus with hyperglycemia (principal); E78.5 Hyperlipidemia, unspecified; I10 Essential (primary) hypertension
CPT/HCPCS: 80053; 80061; 83036

== ENCOUNTER 2021-04-15 22:14 | Outpatient (REF) | payer SELFPAY ==
[2021-04-15 21:02] LABS: Hemoglobin A1C 11.8 % (<5.7)
[2021-04-15 22:01] LABS: ALT 107 U/L (16-63); AST 41 U/L (15-37); Albumin 4.5 g/dL (3.4-5.0); Alkaline Phosphatase 36 U/L (46-116); Anion Gap 8.7 mmol/L (3-11); BUN 26 mg/dL (7-18); Bilirubin, Total 0.6 mg/dL (0.2-1.0); CO2 31.3 mmol/L (21.0-32.0); CREATININE 1.1 mg/dL (0.70-1.30); Calcium 9.3 mg/dL (8.5-10.1); Calculated LDL 151 mg/dL (<100); Chloride 97 mmol/L (98-107); Cholesterol 223 mg/dL (<200); Glucose 184 mg/dL (74-106); HDL Cholesterol 33 mg/dL (40-60); Potassium 3.6 mmol/L (3.5-5.1); Sodium 137 mmol/L (136-145); Triglyceride 198 mg/dL (<150)
== END 2021-04-15 22:15 | disposition home or self-care (01) ==
LOC: NCHCN 22:14
PROVIDERS: PCP Family Medicine; Visit Provider Family Medicine
DX: E11.65 Type 2 diabetes mellitus with hyperglycemia (principal); E78.5 Hyperlipidemia, unspecified; I10 Essential (primary) hypertension; K76.0 Fatty (change of) liver, not elsewhere classified
CPT/HCPCS: 80053; 80061; 83036

== ENCOUNTER 2022-03-31 16:46 | Outpatient (REF) | payer OTHER, SELFPAY ==
[2022-03-31 20:19] LABS: ALT 95 U/L (16-63); AST 41 U/L (15-37); Albumin 4.2 g/dL (3.4-5.0); Alkaline Phosphatase 43 U/L (46-116); Anion Gap 7.7 mmol/L (3-11); BUN 16 mg/dL (7-18); Bilirubin, Total 0.6 mg/dL (0.2-1.0); CO2 29.3 mmol/L (21.0-32.0); CREATININE 1.3 mg/dL (0.70-1.30); Calcium 9.1 mg/dL (8.5-10.1); Calculated LDL 130 mg/dL (<100); Chloride 100 mmol/L (98-107); Cholesterol 204 mg/dL (<200); Estimated GFR 65.69 (mL/min/1.73m2); Glucose 203 mg/dL (74-106); HDL Cholesterol 32 mg/dL (40-60); Sodium 137 mmol/L (136-145); TSH (W/Ref FT4) 2.05 uIU/mL (0.36-3.74); Triglyceride 211 mg/dL (<150)
[2022-04-01 18:14] LABS: PSA, Screening 0.8 ng/mL (<=3.5)
== END 2022-03-31 16:47 | disposition home or self-care (01) ==
LOC: NCHCN 16:46
PROVIDERS: PCP Family Medicine; Visit Provider Family Medicine
DX: E11.65 Type 2 diabetes mellitus with hyperglycemia (principal); E78.5 Hyperlipidemia, unspecified; Z00.00 Encounter for general adult medical examination without abnormal findings; Z12.5 Encounter for screening for malignant neoplasm of prostate
CPT/HCPCS: 80053; 80061; 84153; 84443

== ENCOUNTER 2022-10-20 09:00 | Outpatient (REF) | payer OTHER, SELFPAY ==
[2022-10-20 16:00] LABS: HCT 40.1 % (40.0-50.0); HGB 14.7 g/dL (13.5-17.5)
[2022-10-20 16:23] LABS: ALT 72 U/L (16-63); AST 30 U/L (15-37); Albumin 4.2 g/dL (3.4-5.0); Alkaline Phosphatase 33 U/L (46-116); Anion Gap 7.5 mmol/L (3-11); BUN 32 mg/dL (7-18); Bilirubin, Total 0.5 mg/dL (0.2-1.0); CO2 31.5 mmol/L (21.0-32.0); CREATININE 1.4 mg/dL (0.70-1.30); Calcium 9.6 mg/dL (8.5-10.1); Calculated LDL 121 mg/dL (<100); Chloride 101 mmol/L (98-107); Cholesterol 179 mg/dL (<200); Estimated GFR 59.73 (mL/min/1.73m2); Glucose 139 mg/dL (74-106); HDL Cholesterol 33 mg/dL (40-60); Potassium 4.6 mmol/L (3.5-5.1); Sodium 140 mmol/L (136-145); Triglyceride 128 mg/dL (<150)
== END 2022-10-20 09:01 | disposition home or self-care (01) ==
LOC: NCHCN 09:00
PROVIDERS: PCP Family Medicine; Visit Provider Family Medicine
DX: E11.9 Type 2 diabetes mellitus without complications (principal); K76.0 Fatty (change of) liver, not elsewhere classified; I10 Essential (primary) hypertension; E78.5 Hyperlipidemia, unspecified
CPT/HCPCS: 80053; 80061; 85014; 85018

== ENCOUNTER 2023-01-29 08:53 | Outpatient (REF) | payer OTHER, SELFPAY ==
[2023-01-29 17:27] LABS: ALT 83 U/L (16-63); AST 35 U/L (15-37); Albumin 4.3 g/dL (3.4-5.0); Alkaline Phosphatase 35 U/L (46-116); Anion Gap 8.7 mmol/L (3-11); BUN 21 mg/dL (7-18); Bilirubin, Total 0.4 mg/dL (0.2-1.0); CO2 30.3 mmol/L (21.0-32.0); CREATININE 1.3 mg/dL (0.70-1.30); Calcium 10.2 mg/dL (8.5-10.1); Calculated LDL 96 mg/dL (<100); Chloride 100 mmol/L (98-107); Cholesterol 167 mg/dL (<200); Estimated GFR 65.28 (mL/min/1.73m2); Glucose 141 mg/dL (74-106); HDL Cholesterol 31 mg/dL (40-60); Potassium 4.2 mmol/L (3.5-5.1); Sodium 139 mmol/L (136-145); Total Protein 8.3 g/dL (6.4-8.2); Triglyceride 201 mg/dL (<150)
[2023-01-29 17:30] LABS: Hemoglobin A1C 8.3 % (<5.7)
== END 2023-01-29 08:54 ==
LOC: NCHCN 08:53
PROVIDERS: PCP Family Medicine; Visit Provider Family Medicine
DX: E78.5 Hyperlipidemia, unspecified (principal); I10 Essential (primary) hypertension; E11.9 Type 2 diabetes mellitus without complications
CPT/HCPCS: 80053; 80061; 83036

== ENCOUNTER 2024-01-21 13:50 | Outpatient (REF) | payer BC, SELFPAY ==
[2024-01-21 17:01] LABS: Hemoglobin A1C 7.6 % (<5.7)
[2024-01-21 17:02] LABS: ALT 78 U/L (16-63); AST 32 U/L (15-37); Albumin 4.2 g/dL (3.4-5.0); Alkaline Phosphatase 36 U/L (46-116); Anion Gap 10.5 mmol/L (3-11); BUN 22 mg/dL (7-18); Bilirubin, Total 0.56 mg/dL (0.2-1.0); CO2 26.5 mmol/L (21.0-32.0); CREATININE 1.3 mg/dL (0.70-1.30); Calcium 9.2 mg/dL (8.5-10.1); Calculated LDL 78 mg/dL (<100); Chloride 102 mmol/L (98-107); Cholesterol 143 mg/dL (<200); Estimated GFR 64.88 (mL/min/1.73m2); Glucose 126 mg/dL (74-106); HDL Cholesterol 34 mg/dL (40-60); Potassium 3.7 mmol/L (3.5-5.1); Sodium 139 mmol/L (136-145); Total Protein 8.3 g/dL (6.4-8.2); Triglyceride 156 mg/dL (<150)
== END 2024-01-21 13:51 | disposition home or self-care (01) ==
LOC: NCHCN 13:50
PROVIDERS: PCP Family Medicine; Visit Provider Family Medicine
DX: E11.65 Type 2 diabetes mellitus with hyperglycemia (principal); I10 Essential (primary) hypertension; E78.5 Hyperlipidemia, unspecified
CPT/HCPCS: 80053; 80061; 83036

== ENCOUNTER 2025-01-04 11:04 | Outpatient (REF) | payer BC, SELFPAY ==
[2025-01-04 16:28] LABS: ALT 148 U/L (16-63); AST 50 U/L (15-37); Albumin 4.4 g/dL (3.4-5.0); Alkaline Phosphatase 38 U/L (46-116); Anion Gap 9.8 mmol/L (3-11); BUN 19 mg/dL (7-18); Bilirubin, Total 0.7 mg/dL (0.2-1.0); CO2 30.2 mmol/L (21.0-32.0); Calcium 9.8 mg/dL (8.5-10.1); Chloride 100 mmol/L (98-107); Estimated GFR 78.79 (mL/min/1.73m2); Glucose 116 mg/dL (74-106); Potassium 3.7 mmol/L (3.5-5.1); Sodium 140 mmol/L (136-145); Total Protein 8.1 g/dL (6.4-8.2)
[2025-01-04 16:55] LABS: Hemoglobin A1C 8.9 % (<5.7)
== END 2025-01-04 11:05 | disposition home or self-care (01) ==
LOC: NCHCN 11:04
PROVIDERS: PCP Family Medicine; Visit Provider Family Medicine
DX: I10 Essential (primary) hypertension (principal); E11.65 Type 2 diabetes mellitus with hyperglycemia
CPT/HCPCS: 80053; 83036